=== PATIENT | male | born 1950 | race Caucasian/White ===

== ENCOUNTER → 2017-04-07 | Outpatient (CLI) | payer MEDICARE ==
[2017-04-07 16:19] LABS: CH 31.1; CHCM 32.4; HCT 46.5 % (39.0-53.0); HDW 2.34; HGB 14.7 gm/dL (13.0-17.5); MCH 30.5 pg (25.0-35.0); MCHC 31.6 g/dL (31.0-37.0); MCV 96.3 fL (80.0-100.0); Mean Platelet Volume 7.3; RBC 4.83 m/uL (4.30-5.90); RDW 13.9 % (11.5-15.5); WBC 6.5 k/uL (3.8-10.6)
[2017-04-07 16:43] LABS: Anion Gap 6 mmol/L; Blood Urea Nitrogen 28 mg/dL (9-20); Carbon Dioxide 29 mmol/L (22-30); Chloride 107 mmol/L (98-107); Non-African American GFR(MDRD) 59 (>60 ml/min/1.73 sqM); Potassium 5.1 mmol/L (3.5-5.1); Sodium 142 mmol/L (137-145)
== END | disposition home or self-care (01) ==
LOC: LABWHC1 15:44
PROVIDERS: ATTEND Internal Medicine Cardiovascular Disease
DX: I48.1 Persistent atrial fibrillation (principal)
CPT/HCPCS: 36415; 80051; 82565; 84443; 84520; 85027

== ENCOUNTER 2017-06-26 06:04 | Day surgery (SDC) | payer MEDICARE, OTHER ==
[2017-06-24 10:20] VITALS: BMI 32.1
[2017-06-26] MEDS ORDERED: LACTATED RINGERS 1,000 ML IV SCH (06:38)
[2017-06-26 06:44] VITALS: TEMP 98
[2017-06-26] MEDS ORDERED: SODIUM CHLORIDE 0.9% 50 ML IV ONE (06:50)
[2017-06-26] MEDS ORDERED: SODIUM CHLORIDE 0.9% 1,000 ML IV SCH ×2 (07:00→08:00)
[2017-06-26 07:13] LABS: Anion Gap 11 mmol/L; Blood Urea Nitrogen 20 mg/dL (9-20); Calcium 9.7 mg/dL (8.4-10.2); Carbon Dioxide 25 mmol/L (22-30); Chloride 106 mmol/L (98-107); Glucose 119 mg/dL (74-99); Sodium 142 mmol/L (137-145)
[2017-06-26 07:20] LABS: Potassium 4.5 mmol/L (3.5-5.1)
[2017-06-26] MEDS ORDERED: GLYCOPYRROLATE 0.2 MG/ML 2 ML VIAL ONE (07:28)
[2017-06-26] MEDS ORDERED: fentaNYL (PF) 50 MCG/ML 2 ML AMP ONE (07:28)
[2017-06-26] MEDS ORDERED: PROPOFOL 10 MG/ML 20 ML VIAL IV ONE (07:28)
[2017-06-26] MEDS ORDERED: MIDAZOLAM 2 MG/2 ML VIAL ONE (07:28)
--- NOTE | 2017-06-26 08:34 | ECHOT ---
TRANSESOPHAGEAL ECHOCARDIOGRAM INDICATION: Chronic atrial fibrillation. After obtaining informed consent, transesophageal echocardiogram was performed in left lateral position using an Omni plane probe. Local and IV sedation were obtained by the software engineering manager. The patient tolerated the procedure well without any obvious immediate complications. FINDINGS: 1. There is no intracardiac thrombus within the left atrial appendage, left atrium, right atrium, right ventricle or left ventricle. 2. Left ventricle has normal size and systolic function. 3. Left atrium and right atrium are enlarged. 4. Right ventricle has normal size and function. 5. Interatrial septum: There is no evidence of nktd-pk-cctry shunt by color-flow Doppler or zbbrs-hi-aqhl shunt by agitated saline contrast study. 6. Mitral valve shows mild mitral regurgitation. 7. Tricuspid valve shows mild tricuspid regurgitation. 8. Aortic valve is 3-leaflet valve. There is no evidence of aortic stenosis or regurgitation. 9. Aorta shows mild atherosclerotic changes. CONCLUSIONS: 1. No intracardiac thrombus. 2. Mild mitral regurgitation. MMODL / IJN: [id number] /
--- NOTE | 2017-06-26 08:43 | CE ---
CARDIAC ELECTROPHYSIOLOGY REPORT CARDIOVERSION NOTE: After obtaining informed consent, the patient underwent transesophageal echo and intracardiac thrombus was ruled out. The patient was anesthetized by the general ii farmworker. The patient was adequately anticoagulated with Eliquis. He is also on flecainide. We shocked him once with 500 joules of synchronized DC current and he converted to sinus rhythm and stayed in sinus rhythm. MMLETY / JESSAN: [id number] /
[2017-06-26 08:52] VITALS: RESP 18
[2017-06-26 09:52] VITALS: BP 139/86; PULSE 53
== END 2017-06-26 09:53 | disposition home or self-care (01) ==
LOC: CATHCVL 06:04
PROVIDERS: ATTEND Internal Medicine Cardiovascular Disease
DX: I48.2 Chronic atrial fibrillation (principal); I08.1 Rheumatic disorders of both mitral and tricuspid valves; I47.1 Supraventricular tachycardia; E78.5 Hyperlipidemia, unspecified; I10 Essential (primary) hypertension; R00.1 Bradycardia, unspecified; K29.50 Unspecified chronic gastritis without bleeding; Z79.01 Long term (current) use of anticoagulants; Z79.899 Other long term (current) drug therapy
CPT/HCPCS: 93312; 93320; 93325; 92960; 80048; J2250; J3010; J2704; 93005

== ENCOUNTER 2017-07-17 07:56 | Day surgery (SDC) | payer MEDICARE, OTHER ==
[2017-07-15 15:27] VITALS: BMI 29.8
[~2017-07-17 07:56] MED LIST: SODIUM CHLORIDE 0.9% 1,000 ML IV SCH
[2017-07-17] MEDS ORDERED: LACTATED RINGERS 1,000 ML IV SCH (08:15)
[2017-07-17] MEDS ORDERED: IV FLUID CONTINUATION 1,000 ML IV ONE (08:53)
[2017-07-17] MEDS ORDERED: PROPOFOL 10 MG/ML 20 ML VIAL IV ONE (09:00)
[2017-07-17] MEDS: BENZOCAINE SPRAY 1 CAN MUCOUS MEM ONE ×2 (09:00→09:02)
[2017-07-17] MEDS ORDERED: SODIUM CHLORIDE 0.9% 1,000 ML IV SCH (09:15)
[2017-07-17 09:24] VITALS: TEMP 97.7
[2017-07-17] MEDS ORDERED: LACTATED RINGERS 1,000 ML IV ONE (09:33)
--- NOTE | 2017-07-17 09:39 | ECHOT ---
TRANSESOPHAGEAL ECHOCARDIOGRAM INDICATION: Chronic atrial fibrillation. PROCEDURE: After obtaining informed consent, transesophageal echocardiogram was performed in left lateral position using an Omniplane probe. Local and IV sedation were obtained by the yard general car supervisor. The patient tolerated the procedure well without any obvious immediate complications. FINDINGS: 1. There is no intracardiac thrombus within the left atrial appendage, left atrium, right atrium, right ventricular or left ventricle. 2. Left ventricular size and systolic function are normal. 3. Mitral valve shows mild mitral regurgitation. 4. Aortic valve shows trace aortic regurgitation. 5. Tricuspid valve appears normal. 6. Interatrial septum: There is no evidence of fdwp-ks-clgnj shunt by color-flow Doppler or hluac-hz-jskl shunt by agitated saline contrast study. 7. Aorta shows mild atherosclerotic changes. CONCLUSIONS: 1. No evidence of intracardiac thrombus. 2. Normal left ventricular systolic function. PLAN: Patient will undergo cardioversion. MMODL / IJN: [id number] /
--- NOTE | 2017-07-17 09:42 | CE ---
CARDIAC ELECTROPHYSIOLOGY REPORT CARDIOVERSION INDICATION: Chronic atrial fibrillation. The patient was cardioverted using 300 joules of DC current. He converted to sinus rhythm following a single synchronized shock. An EKG will be obtained to document the sinus rhythm. The patient will continue the anticoagulant that he is on and will also continue the flecainide. ALEXIS / JASON: [id number] /
[2017-07-17 10:14] VITALS: RESP 20
[2017-07-17 11:05] VITALS: BP 116/77; PULSE 60
== END 2017-07-17 11:00 | disposition home or self-care (01) ==
LOC: CATHCVL 07:56
PROVIDERS: ATTEND Internal Medicine Cardiovascular Disease
DX: I48.2 Chronic atrial fibrillation (principal); R00.1 Bradycardia, unspecified; E78.5 Hyperlipidemia, unspecified; I10 Essential (primary) hypertension; Z79.01 Long term (current) use of anticoagulants; Z79.899 Other long term (current) drug therapy
CPT/HCPCS: 93312; 93320; 93325; 92960; J2704; 93005

== ENCOUNTER 2017-09-15 08:02 | Day surgery (SDC) | payer MEDICARE, OTHER ==
[2017-09-08 15:34] VITALS: BMI 30.2
[~2017-09-15 08:02] MED LIST changes: +DEXAMETHASONE SOD PHOSPHATE 10 MG/ML 1 ML VIAL IV ONE; +MIDAZOLAM 2 MG/2 ML VIAL IV PRN; +ONDANSETRON ODT 4 MG TAB PO ONE; -SODIUM CHLORIDE 0.9% 1,000 ML IV SCH; +ceFAZolin IN SWFI 2 GM/20 ML SYRINGE IVP ONE; +fentaNYL (PF) 50 MCG/ML 2 ML AMP IV PRN
[2017-09-15] MEDS ORDERED: LIDOCAINE 1% 20 ML VIAL (10MG/ML) FOR IV START INTRADERMA ONE (09:07)
[2017-09-15] MEDS: LACTATED RINGERS 1,000 ML IV SCH ×3 (09:07→20:47)
[2017-09-15] MEDS ORDERED: LIDOCAINE 2%-EPI 1:100,000 20 ML VIAL ONE (09:20)
[2017-09-15] MEDS ORDERED: fentaNYL (PF) 50 MCG/ML 2 ML AMP ONE (09:20)
[2017-09-15] MEDS ORDERED: MIDAZOLAM 2 MG/2 ML VIAL ONE (09:20)
[2017-09-15] MEDS ORDERED: LIDOCAINE 1% INJ 10MG/ML (20 ML MDV) ONE (09:20)
[2017-09-15] MEDS ORDERED: ePHEDrine SULFATE/0.9% NACL/PF 50 MG/5 ML SYRINGE IV ONE (09:20)
[2017-09-15] MEDS ORDERED: ROPIVACAINE 5 MG/ML 30 ML VIAL ONE (09:20)
[2017-09-15] MEDS ORDERED: PROPOFOL 10 MG/ML 20 ML VIAL IV ONE (09:20)
[2017-09-15] MEDS ORDERED: PHENYLEPHRINE-0.9% NACL SYG 1 MG/10 ML SYRINGE ONE (09:20)
[2017-09-15] MEDS ORDERED: SUCCINYLCHOLINE CHLORIDE 100 MG/5 ML SYR IV ONE (09:20)
[2017-09-15] MEDS ORDERED: ceFAZolin 1,000 MG in SODIUM CHLORIDE 0.9% 1,000 ML IRRIGATION ONE (10:04)
[2017-09-15] MEDS ORDERED: HYDROcodone/APAP 5-325MG 1 EACH TAB PO PRN (11:16)
[2017-09-15] MEDS ORDERED: TEMAZEPAM 15 MG CAP PO PRN (11:16)
[2017-09-15] MEDS ORDERED: MORPHINE SULFATE 4 MG/ML SYRINGE IVP PRN ×3 (11:16)
[2017-09-15] MEDS ORDERED: SENNOSIDES-DOCUSATE SODIUM 1 EACH TAB PO PRN (11:16)
[2017-09-15] MEDS ORDERED: hydrOXYzine PAMOATE 25 MG CAP PO PRN (11:16)
[2017-09-15] MEDS ORDERED: ONDANSETRON 4 MG/2 ML VIAL IVP PRN (11:16)
[2017-09-15] MEDS ORDERED: ONDANSETRON 4 MG/2 ML VIAL IVP ONE (11:31)
--- NOTE | 2017-09-15 15:45 | P.ONQ ---
Anesthesiology Proc Note - PNB - Peripheral Nerve Block Performed Right Interscalene Single Time Out Performed: Yes (0923) Procedure Start Time: Procedure Stop Time: Indication: Acute Post-Operative Pain, Dx/Pain Location (Right Shoulder Pain), Requested by physician Sedation Type: Sedate with meaningful contact maintained Preparation: Sterile Prep Position: Supine Needle Types: On-Q Needle Size: 50mm (2") Needle Gauge: 21 Technique: Ultrasound Injectate: 0.5% Ropivacaine (see comment for volume) (20ml) Blood Aspirated: No Pain Paresthesia on Injection Noted: No Resistance on Injection: Normal Events: Uneventful and Well Tolerated
[2017-09-15] MEDS: ceFAZolin IN SWFI 2 GM/20 ML SYRINGE IVP SCH ×2 (16:38→23:05)
[2017-09-15] MEDS: PANTOPRAZOLE 40 MG TABLET PO SCH (20:16)
[2017-09-15] MEDS: FLECAINIDE 50 MG TAB PO SCH (20:16)
[2017-09-15] MEDS ORDERED: PRAVASTATIN SODIUM 40 MG TAB PO SCH (21:00)
--- NOTE | 2017-09-15 22:57 | CONS ---
CONSULTATION DATE OF CONSULTATION: 09/15/2017 REASON FOR CONSULTATION: Medical management requested by Dr. Anderson. CONSULTATION: This is a very pleasant 67-year-old patient of Dr. Gamboa who has undergone a right rotator cuff surgery. Right arm in a sling and support right now. Pain is controlled. No nausea, vomiting, did support some dinner. The patient's chronic stable medical conditions include GERD, hyperlipidemia, osteoarthritis especially in the hands, chronic gastritis for which he has had a EGD by Dr. Lenny Collado, varicose veins, especially in the right lower extremity, rosacea. The patient also has known atrial fibrillation, was DC cardioverted in July by Dr. Collado for which patient is on Eliquis. The patient did stop his Eliquis 2 days prior to surgery. Denies any other cardiac history. The patient is with his . REVIEW OF SYSTEMS: CONSTITUTIONAL: None. HEENT: None. RESPIRATORY: None. CARDIOVASCULAR: As above. GASTROINTESTINAL: Some heartburn. GENITOURINARY: None. MUSCULOSKELETAL: Arthritic pain, especially in the fingers, especially in the left hand. DERMATOLOGICAL: As above. LYMPHATICS: None. PSYCHIATRY: None. NEUROLOGICAL: None. PAST MEDICAL HISTORY: Atrial fibrillation, GERD, hyperlipidemia, osteoarthritis, chronic gastritis, varicose veins, rosacea. PAST SURGICAL HISTORY: Cardiac catheterization, SELINA with cardioversion. SOCIAL HISTORY: The patient smoked less than a pack a day for close to 50 years, stopped in 1999. . Alcohol occasionally. FAMILY HISTORY: Lung cancer. HOME MEDICATIONS: 1. Pravachol 40 mg q.h.s. 2. Tambocor 100 mg q.12. 3. Protonix 40 mg b.i.d. 4. Tenormin 25 mg p.o. daily. 5. Eliquis 5 mg p.o. b.i.d. 6. Senokot-S 2 tablets p.o. daily. 7. [place] 5, 1-2 tablets q.4 p.r.n. ALLERGIES: To LATEX, ADHESIVE TAPE. PHYSICAL EXAMINATION: Temperature 98.8, pulse 65, respirations 15, blood pressure 137/75, pulse ox 92% on room air. GENERAL APPEARANCE: Well-built, BMI 30.2. Propped up in bed, comfortable. EYES: Pupils equal. Conjunctivae normal. HEENT: External appearance of nose and ears normal. Oral cavity normal. NECK: JVD not raised. Mass not palpable. RESPIRATORY: Effort normal. LUNGS: Fair air entry. CARDIOVASCULAR: First and second sounds normal. No edema. ABDOMEN: Soft, nontender. Liver, spleen not palpable. LYMPHATIC: No lymph node palpable in the left axilla or the neck. PSYCHIATRY: Alert and oriented x3. Mood and affect normal. EXTREMITIES: The patient has varicose veins, especially in the right calf. Right upper extremity arm in a sling. The patient has sensation in the fingers. NEUROLOGICAL: Pupils equal. Cranial nerve grossly intact. Power and sensation grossly intact. INVESTIGATIONS: No lab work from admission. ASSESSMENT: 1. Right shoulder surgery. 2. Paroxysmal atrial fibrillation, status post cardioversion, currently in sinus rhythm on Eliquis. 3. Gastroesophageal reflux disease. 4. Hyperlipidemia. 5. Primary osteoarthritis, especially of the hands. 6. Chronic gastritis. 7. Varicose veins lower extremity. 8. Rosacea. PLAN: The patient may start his Eliquis tomorrow evening. Other home medications to be resumed. Patient should follow up with his family doctor upon discharge. Care was discussed with the patient. Thank you, Dr. Anderson. MMSHERITAL / JESSAN: [id number] /
[2017-09-16 01:32] VITALS: RESP 12
[2017-09-16] MEDS: LACTATED RINGERS 1,000 ML IV SCH (05:15)
[2017-09-16] MEDS: HYDROcodone/APAP 5-325MG 1 EACH TAB PO PRN ×2 (05:54→09:46)
[2017-09-16] MEDS: FLECAINIDE 50 MG TAB PO SCH (07:10)
[2017-09-16] MEDS: PANTOPRAZOLE 40 MG TABLET PO SCH (07:10)
[2017-09-16 07:17] VITALS: BP 153/79; PULSE 56; TEMP 98.5
--- NOTE | 2017-09-16 08:54 | P.DS ---
Providers Expected date of discharge: 09/16/17 Attending physician: Kobi Anderson Consults: 09/15/17 11:21 Consult Physician Routine Consulting Provider: Colby Ortega Consult Reason/Comments: medical management Do you want consulting provider notified?: Yes 09/15/17 11:28 Consult Physician Routine Consulting Provider: Dejon Bhakta Consult Reason/Comments: medical managment Do you want consulting provider notified?: Yes Primary care physician: Sterling Gamboa - Discharge Diagnosis(es) (1) Rotator cuff tear, right Status: Acute (2) Status post rotator cuff repair Status: Acute Hospital Course: This is a 67-year-old male with known history of 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 The patient presented to the orthopedic office for evaluation. After discussion and consideration patient elects to proceed with a rotator cuff repair. The patient is seen preoperatively by his primary care physician and cleared for surgery. Patient is admitted to observation at [facility] on 09/15/2017 for right shoulder rotator cuff repair with distal clavicle excision and acromioplasty. The procedures performed without complication or sequelae. The patient is doing well postoperatively. Labs and vital signs are stable on day of discharge. On day of discharge patient's shoulder incision is healing well. There is minimal erythema. There is no drainage noted at this time. There is minimal soft tissue swelling to the right upper extremity. Patient has full hand, wrist , and elbow motion without difficulty or pain. Neurovascular status to the right upper extremity is intact. Patient is discharged to home in good condition. Patient Condition at Discharge: Stable Plan - Discharge Summary Discharge Rx Participant: Yes New Discharge Prescriptions: New HYDROcodone/APAP 5-325MG [[place] 5] 1 - 2 each PO Q4-6H PRN #60 tab PRN Reason: Pain Sennosides-Docusate Sodium [Senokot-S] 2 tab PO DAILY #30 tablet No Action Pantoprazole Sodium [Protonix] 40 mg PO BID Flecainide [Tambocor] 100 mg PO Q12HR Apixaban [Eliquis] 5 mg PO BID Atenolol [Tenormin] 25 mg PO QAM Acetaminophen [Tylenol] 325 mg PO DAILY PRN PRN Reason: Pain Pravastatin Sodium [Pravachol] 40 mg PO HS Discharge Medication List Pantoprazole Sodium [Protonix] 40 mg PO BID 10/31/14 [History] Apixaban [Eliquis] 5 mg PO BID 06/24/17 [History] Flecainide [Tambocor] 100 mg PO Q12HR 06/24/17 [History] Acetaminophen [Tylenol] 325 mg PO DAILY PRN 07/15/17 [History] Atenolol [Tenormin] 25 mg PO QAM 07/15/17 [History] Pravastatin Sodium [Pravachol] 40 mg PO HS 09/08/17 [History] HYDROcodone/APAP 5-325MG [[place] 5] 1 - 2 each PO Q4-6H PRN #60 tab 09/15/17 [Rx] Sennosides-Docusate Sodium [Senokot-S] 2 tab PO DAILY #30 tablet 09/15/17 [Rx] Follow up Appointment(s)/Referral(s): Kobi Anderson DO [Doctor of Osteopathic Medicine] - 10/01/17 9:45 am Iva Rodriguez NPC [REFERRING] - 09/22/17 2:30 pm Patient Instructions/Handouts: Joint Replacement Surgery (DC) Activity/Diet/Wound Care/Special Instructions: Keep incision clean and dry Change dressing daily May shower in 3 days if no drainage from incision Keep arm sling/abductor pillow in place except when bathing Follow up with Dr. Anderson in 2 weeks. Call [facility] with any questions or concerns. [phone] Discharge Disposition: HOME SELF-CARE
[2017-09-16] MEDS ORDERED: ATENOLOL 25 MG TAB PO SCH (09:00)
[2017-09-16] MEDS ORDERED: HYDROmorphone 2 MG TAB PO PRN ×2 (12:02)
--- NOTE | 2017-09-16 23:40 | PN ---
PROGRESS NOTE DATE OF SERVICE: 09/16/2017 PRESENTING COMPLAINT: Right shoulder surgery. INTERVAL HISTORY: Patient is status post right shoulder surgery, doing well. Pain is controlled. No nausea, vomiting. is present. Has been out of bed. REVIEW OF SYSTEMS: Done for constitutional, cardiovascular, GI, pulmonary, musculoskeletal; relevant findings as above. CURRENT MEDICATIONS: Reviewed. EXAMINATION: Temperature 98.5, pulse 56, respirations 16, blood pressure 153/79, pulse ox 94% on room air. GENERAL APPEARANCE: Sitting up, comfortable. EYES: Pupils equal. Conjunctivae normal. NECK: JVD not raised. Mass not palpable. RESPIRATORY: Effort normal. Lungs are fair air entry. CARDIOVASCULAR: First and second sounds normal. No edema. ABDOMEN: Soft, nontender. Liver and spleen not palpable. PSYCHIATRY: Alert and oriented x3. Mood and affect normal. EXTREMITIES: Right arm is in a sling. Fingers have very good sensation, moving them well. ASSESSMENT: 1. Right shoulder surgery. 2. Paroxysmal atrial fibrillation, status post cardioversion in sinus rhythm on Eliquis. 3. Gastroesophageal reflux disease. 4. Hyperlipidemia. 5. Primary osteoarthritis, especially of the hands. 6. Chronic gastritis. 7. Varicose veins, lower extremity. 8. Rosacea. PLAN: Care was discussed with the patient and the . The patient to resume his Eliquis. Follow with the family doctor. Thank you, Dr. Anderson. ALEXIS / JASON: [id number] /
--- NOTE | 2017-09-18 12:41 | OP ---
OPERATIVE REPORT DATE OF SERVICE: 09/15/2017 SURGEON: Kobi Anderson DO FARM EQUIPMENT ASSEMBLER: Alina Garcia NP PREOPERATIVE DIAGNOSIS: Complete tear of the right rotator cuff. FINAL DIAGNOSIS: Complete tear of right rotator cuff right shoulder. PROCEDURE: Resection of distal right clavicle, decompression acromioplasty, and right rotator cuff repair utilizing Arthrex bioabsorbable anchor. DESCRIPTION OF PROCEDURE: The patient was taken to the operative suite and placed in supine position. Regional block anesthesia was performed by the department of anesthesiology. General inhalation anesthesia was initiated. The patient was placed in a beach chair position, padded and appropriately secured. Betadine prep was carried out over the right shoulder. Sterile drapes were applied in the usual manner. An anterolateral incision was developed over the acromion. Sharp dissection through the subcutaneous tissue. The superior acromioclavicular ligament was identified and dissected. The distal 1 cm of the clavicle was excised with a bone saw. Anterior deltoid was released along with the anterior lateral border of the acromion. The coracoacromial ligament was released. Anterior lateral decompression acromioplasty was performed. Acromion was shaped with a saw and bone rasp. Complete tear was noted of the right rotator cuff. The area was prepared and Arthrex 5.5 bioabsorbable suture into the humeral head and reapproximation of the tear was performed. The area was irrigated copiously. The deltoid was approximated back into the acromion with #1 Ethibond suture. The deep fascia was approximated with #1 Vicryl suture. The subcutaneous tissue approximated with 2-0 Vicryl suture. The skin was approximated with 3-0 Quill suture in subcuticular fashion. The incision was sealed with Dermabond. Sterile dressing was applied. The patient was placed in an abductor pillow split and transferred to recovery room in satisfactory postop condition. 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 MMODL / IJN: [id number] / MTDGildardo
== END 2017-09-16 11:35 | disposition home or self-care (01) ==
LOC: OR 08:02 → 3SUR 11:08 → OR 09-16 11:35
PROVIDERS: ATTEND Orthopaedic Surgery
DX: M75.121 Complete rotator cuff tear or rupture of right shoulder, not specified as traumatic (principal); M75.41 Impingement syndrome of right shoulder; I10 Essential (primary) hypertension; E78.5 Hyperlipidemia, unspecified; I25.10 Atherosclerotic heart disease of native coronary artery without angina pectoris; I48.0 Paroxysmal atrial fibrillation; I47.1 Supraventricular tachycardia; K21.9 Gastro-esophageal reflux disease without esophagitis; M19.042 Primary osteoarthritis, left hand; M19.041 Primary osteoarthritis, right hand; K29.50 Unspecified chronic gastritis without bleeding; I83.91 Asymptomatic varicose veins of right lower extremity; L71.9 Rosacea, unspecified; Z79.01 Long term (current) use of anticoagulants; Z79.899 Other long term (current) drug therapy; Z87.891 Personal history of nicotine dependence; Z91.040 Latex allergy status; Z91.048 Other nonmedicinal substance allergy status
CPT/HCPCS: 64415; 23120; 23420; C1713; J2250; J1100; J2405; J0690 ×2; J2001; J3010; J2795; J2370; J0330; J2704

== ENCOUNTER 2018-12-23 11:51 | Inpatient (IN) | payer MEDICARE, OTHER ==
[2018-12-23] MEDS ORDERED: SODIUM CHLORIDE 0.9% 1,000 ML IV STA (12:11)
[2018-12-23] MEDS ORDERED: DILTIAZEM DRIP BOLUS FROM BAG 1 MG SOLN IV ONE ×2 (12:11→13:46)
--- NOTE | 2018-12-23 12:43 | ED ---
Arrhythmia/Palpitations HPI - General Chief Complaint: Arrhythmia/Palpitations Stated Complaint: AFIB Time Seen by Provider: 12/23/18 11:58 Source: patient, RN notes reviewed, old records reviewed Mode of arrival: wheelchair Limitations: no limitations - History of Present Illness Initial Comments: This is a 5-year-old male the ER for evaluation presents today for evaluation regarding elevated heart rate palpitations feeling lightheaded dizzy and sweaty. Patient's history of atrial fibrillation but he has not had history of atrial fibrillation for over a year, he did have cardioversion was on blood pressure 6 months not currently on blood thinners or sick./. Patient woke this morning with lightheadedness dizziness and shortness of breath. [facility] for [facility], patient states he feels just like her prior history of H of fibrillation, denies chest pain, no recent fevers nausea vomiting medications or drug abuse MD Complaint: rapid heart beat, "heart racing", palpitations, irregular heart beat, atrial fibrillation -: hour(s) Context: occurred during rest, awoke with symptoms Arrhythmia History: atrial fibrillation Associated Symptoms: shortness of breath, diaphoresis - Related Data Home Medications Medication Instructions Recorded Confirmed Pantoprazole Sodium [Protonix] 40 mg PO BID 10/31/14 12/23/18 Flecainide [Tambocor] 100 mg PO Q12HR 06/24/17 12/23/18 Pravastatin Sodium [Pravachol] 40 mg PO HS 09/08/17 12/23/18 Aspirin EC [Ecotrin] 325 mg PO DAILY 12/23/18 12/23/18 Fish Oil/Dha/Epa [Fish Oil 1,200 1 cap PO DAILY 12/23/18 12/23/18 mg Fish Oil] Multivitamins, Thera [Multivitamin 1 tab PO DAILY 12/23/18 12/23/18 (formulary)] Naproxen Sodium [Aleve] 220 mg PO Q12HR PRN 12/23/18 12/23/18 Allergies Allergy/AdvReac Type Severity Reaction Status Date / Time adhesive tape Allergy red skin Verified 12/23/18 12:14 latex Allergy Rash/Hives Verified 12/23/18 12:14 Review of Systems ROS Statement: Those systems with pertinent positive or pertinent negative responses have been documented in the HPI. ROS Other: All systems not noted in ROS Statement are negative. Past Medical History Past Medical History: Atrial Fibrillation, GERD/Reflux, Hyperlipidemia, Osteoarthritis (OA), Skin Disorder Additional Past Medical History / Comment(s): CHRONIC GASTRITIS, varicose veins, roseacea, History of Any Multi-Drug Resistant Organisms: None Reported Past Surgical History: Heart Catheterization Additional Past Surgical History / Comment(s): daniel rectal cyst, SELINA, cardioversion x 2, colonoscopy, EGD Past Anesthesia/Blood Transfusion Reactions: No Reported Reaction Past Psychological History: No Psychological Hx Reported Smoking Status: Former smoker Past Alcohol Use History: Occasional Past Drug Use History: None Reported - Past Family History Mother Family Medical History: Cancer Additional Family Medical History / Comment(s): LUNG Sister(s) Family Medical History: Cancer Additional Family Medical History / Comment(s): SKIN Brother(s) Family Medical History: Cancer Additional Family Medical History / Comment(s): Colon General Exam Limitations: no limitations General appearance: alert, in no apparent distress, anxious Head exam: Present: atraumatic, normocephalic, normal inspection Eye exam: Present: normal appearance, PERRL, EOMI. Absent: scleral icterus, conjunctival injection, periorbital swelling ENT exam: Present: normal exam, mucous membranes moist Neck exam: Present: normal inspection. Absent: tenderness, meningismus, lymphadenopathy Respiratory exam: Present: normal lung sounds bilaterally. Absent: respiratory distress, wheezes, rales, rhonchi, stridor Cardiovascular Exam: Present: tachycardia, irregular rhythm, normal heart sounds. Absent: systolic murmur, diastolic murmur, rubs, gallop, clicks GI/Abdominal exam: Present: soft, normal bowel sounds. Absent: distended, tenderness, guarding, rebound, rigid Extremities exam: Present: normal inspection, full ROM, normal capillary refill. Absent: tenderness, pedal edema, joint swelling, calf tenderness Back exam: Present: normal inspection Neurological exam: Present: alert, oriented X3, CN II-XII intact Psychiatric exam: Present: normal affect, normal mood Skin exam: Present: warm, dry, intact, normal color. Absent: rash Course Vital Signs 12/23/18 12/23/18 12/23/18 11:54 12:55 13:30 Temperature 97.4 F L Pulse Rate 154 H 140 H 131 H Respiratory 20 18 18 Rate Blood Pressure 133/91 123/93 126/90 O2 Sat by Pulse 99 96 98 Oximetry - Reevaluation(s) Reevaluation #1: 12/23/18 12:43 Medical records reviewed Reevaluation #2: 12/23/18 13:48 Heart rate remains elevated here in the ER EKG Findings - EKG Comments: EKG Findings:: EKG shows atrial flutter rate of 156, QRS 02, QTc 5:15 Medical Decision Making - Medical Decision Making 68 male the ER for recurrent onset of H of fibrillation with RVR, patient be admitted for rate control, patient will be started on back on Alquist for anticoagulation - Lab Data Result diagrams: 12/23/18 12:30 12/23/18 12:30 Lab Results 12/23/18 12/23/18 12/23/18 Range/Units 12:30 12:30 12:30 WBC 9.7 (3.8-10.6) k/uL RBC 5.92 H (4.30-5.90) m/uL Hgb 17.7 H (13.0-17.5) gm/dL Hct 53.5 H (39.0-53.0) % MCV 90.3 (80.0-100.0) fL MCH 29.8 (25.0-35.0) pg MCHC 33.0 (31.0-37.0) g/dL RDW 13.4 (11.5-15.5) % Plt Count 426 (150-450) k/uL Neutrophils % 69 % Lymphocytes % 18 % Monocytes % 7 % Eosinophils % 2 % Basophils % 1 % Neutrophils # 6.8 (1.3-7.7) k/uL Lymphocytes # 1.8 (1.0-4.8) k/uL Monocytes # 0.7 (0-1.0) k/uL Eosinophils # 0.2 (0-0.7) k/uL Basophils # 0.1 (0-0.2) k/uL PT (9.0-12.0) sec INR (<1.2) APTT (22.0-30.0) sec Sodium 140 (137-145) mmol/L Potassium 4.8 (3.5-5.1) mmol/L Chloride 105 (98-107) mmol/L Carbon Dioxide 24 (22-30) mmol/L Anion Gap 11 mmol/L BUN 22 H (9-20) mg/dL Creatinine 1.06 (0.66-1.25) mg/dL Est GFR (CKD-EPI)AfAm 82 (>60 ml/min/1.73 sqM) Est GFR (CKD-EPI)NonAf 71 (>60 ml/min/1.73 sqM) Glucose 124 H (74-99) mg/dL Calcium 9.5 (8.4-10.2) mg/dL Magnesium 2.1 (1.6-2.3) mg/dL Total Bilirubin 1.1 (0.2-1.3) mg/dL AST 37 (17-59) U/L ALT 41 (21-72) U/L Alkaline Phosphatase 115 (38-126) U/L Creatine Kinase 70 (55-170) U/L CK-MB (CK-2) 1.7 (0.0-2.4) ng/mL Troponin I 0.025 (0.000-0.034) ng/mL Total Protein 7.6 (6.3-8.2) g/dL Albumin 4.3 (3.5-5.0) g/dL TSH 1.680 (0.465-4.680) mIU/L 12/23/18 Range/Units 12:30 WBC (3.8-10.6) k/uL RBC (4.30-5.90) m/uL Hgb (13.0-17.5) gm/dL Hct (39.0-53.0) % MCV (80.0-100.0) fL MCH (25.0-35.0) pg MCHC (31.0-37.0) g/dL RDW (11.5-15.5) % Plt Count (150-450) k/uL Neutrophils % % Lymphocytes % % Monocytes % % Eosinophils % % Basophils % % Neutrophils # (1.3-7.7) k/uL Lymphocytes # (1.0-4.8) k/uL Monocytes # (0-1.0) k/uL Eosinophils # (0-0.7) k/uL Basophils # (0-0.2) k/uL PT 9.8 (9.0-12.0) sec INR 0.9 (<1.2) APTT 24.9 (22.0-30.0) sec Sodium (137-145) mmol/L Potassium (3.5-5.1) mmol/L Chloride (98-107) mmol/L Carbon Dioxide (22-30) mmol/L Anion Gap mmol/L BUN (9-20) mg/dL Creatinine (0.66-1.25) mg/dL Est GFR (CKD-EPI)AfAm (>60 ml/min/1.73 sqM) Est GFR (CKD-EPI)NonAf (>60 ml/min/1.73 sqM) Glucose (74-99) mg/dL Calcium (8.4-10.2) mg/dL Magnesium (1.6-2.3) mg/dL Total Bilirubin (0.2-1.3) mg/dL AST (17-59) U/L ALT (21-72) U/L Alkaline Phosphatase (38-126) U/L Creatine Kinase (55-170) U/L CK-MB (CK-2) (0.0-2.4) ng/mL Troponin I (0.000-0.034) ng/mL Total Protein (6.3-8.2) g/dL Albumin (3.5-5.0) g/dL TSH (0.465-4.680) mIU/L - Radiology Data Radiology results: report reviewed (Chest x-rays negative for acute disease), image reviewed Critical Care Time Critical Care Time: Yes Total Critical Care Time: 31 Disposition Clinical Impression: Atrial fibrillation, Atrial flutter, Palpitations, Atrial fibrillation with RVR Disposition: ADMITTED IP TO THIS HOSP Condition: Good Is patient prescribed a controlled substance at d/c from ED?: No Referrals: Sterling Gamboa MD [Primary Care Provider] - 1-2 days
[2018-12-23] MEDS: DILTIAZEM 125 MG in SODIUM CHLORIDE 0.9% 100 ML IV SCH ×2 (12:53→22:57)
[2018-12-23 12:57] LABS: Basophils # (A) 0.1 k/uL (0-0.2); Basophils % (A) 1 %; Eosinophils # (A) 0.2 k/uL (0-0.7); Eosinophils % (A) 2 %; HCT 53.5 % (39.0-53.0); HGB 17.7 gm/dL (13.0-17.5); INR 0.9 (<1.2); Lymphocytes # (A) 1.8 k/uL (1.0-4.8); Lymphocytes % (A) 18 %; MCH 29.8 pg (25.0-35.0); MCV 90.3 fL (80.0-100.0); Mean Platelet Volume 6.4; Monocytes # (A) 0.7 k/uL (0-1.0); Monocytes % (A) 7 %; Neutrophils # (A) 6.8 k/uL (1.3-7.7); Neutrophils % (A) 69 %; Partial Thromboplastin Time 24.9 sec (22.0-30.0); Platelet Count 426 k/uL (150-450); Prothrombin Time 9.8 sec (9.0-12.0); RBC 5.92 m/uL (4.30-5.90); RDW 13.4 % (11.5-15.5); WBC 9.7 k/uL (3.8-10.6)
[2018-12-23 12:58] LABS: Albumin 4.3 g/dL (3.5-5.0); Calcium 9.5 mg/dL (8.4-10.2); Magnesium 2.1 mg/dL (1.6-2.3); Potassium 4.8 mmol/L (3.5-5.1); Total Bilirubin 1.1 mg/dL (0.2-1.3); Total Protein 7.6 g/dL (6.3-8.2)
--- NOTE | 2018-12-23 13:16 | XR ---
EXAMINATION TYPE: XR chest 2V DATE OF EXAM: 12/23/2018 COMPARISON: 10/31/2014 HISTORY: Dysrhythmia and chest pain TECHNIQUE: Frontal and lateral views of the chest are obtained. FINDINGS: There is an enlarged cardiac mediastinal silhouette. Strand-like left basilar atelectasis is seen. Overlying leads partially obscure the chest. Mild degenerative changes of the thoracic spine are noted. No sizable pleural effusion or pneumothorax. No focal consolidation. IMPRESSION: Enlarged cardiac mediastinal silhouette is seen on the prior. Normal left basilar subseg mental atelectasis.
[2018-12-23 13:22] LABS: Creatine Kinase MB 1.7 ng/mL (0.0-2.4); Troponin I 0.025 ng/mL (0.000-0.034)
[2018-12-23] MEDS ORDERED: ASPIRIN 81 MG PO STA (13:46)
[2018-12-23] MEDS ORDERED: NITROGLYCERIN SL TABS 0.4 MG TAB SUBLINGUAL PRN (13:46)
[2018-12-23] MEDS ORDERED: APIXABAN 5 MG TAB PO STA (13:53)
[2018-12-23] MEDS: SODIUM CHLORIDE 0.9% 1,000 ML IV SCH ×2 (14:00→22:57)
[2018-12-23 16:49] VITALS: BMI 28.6
[2018-12-23] MEDS ORDERED: NAPROXEN 250 MG TAB PO PRN (17:05)
--- NOTE | 2018-12-23 17:13 | P.HPIM ---
History of Present Illness Patient is a 68-year-old pleasant gentleman with known history of atrial flutter ablation came and compensative palpation patient was having low back. Doesn't have any symptoms or signs of sepsis denied any fever chills denied any nausea vomiting dysuria chest x-ray did not show any significant abnormality patient was started on Cardizem after adequate to IV Cardizem doses and patient is presently on 5 mg of per hour of Cardizem without any significant improvement in heart rate patient's heart rate is 130 at this time. Patient to ejection fraction the past was within normal limits. Patient is on Eliquis which was restarted back here. Patient was having lightheadedness and shadows of breath as well was also complaining of low back pain with radiculopathy tingling and numbness radiating to back of Review of Systems REVIEW OF SYSTEMS: CONSTITUTIONAL: No fever, no malaise, no fatigue. HEENT: No recent visual problems or hearing problems. Denied any sore throat. CARDIOVASCULAR: No chest pain, orthopnea, PND, no syncope. PULMONARY:, no cough, no hemoptysis. GASTROINTESTINAL: No diarrhea, no nausea, no vomiting, no abdominal pain. NEUROLOGICAL: No headaches, no weakness, no numbness. HEMATOLOGICAL: Denies any bleeding or petechiae. GENITOURINARY: Denies any burning micturition, frequency, or urgency. MUSCULOSKELETAL/RHEUMATOLOGICAL: Denies any joint pain, swelling, or any muscle pain. ENDOCRINE: Denies any polyuria or polydipsia. The rest of the 14-point review of systems is negative. Past Medical History Past Medical History: Atrial Fibrillation, GERD/Reflux, Hyperlipidemia, Osteoarthritis (OA), Skin Disorder Additional Past Medical History / Comment(s): CHRONIC GASTRITIS, varicose veins, roseacea, History of Any Multi-Drug Resistant Organisms: None Reported Past Surgical History: Heart Catheterization Additional Past Surgical History / Comment(s): daniel rectal cyst, SELINA, cardioversion x 2, colonoscopy, EGD Past Anesthesia/Blood Transfusion Reactions: No Reported Reaction Past Psychological History: No Psychological Hx Reported Smoking Status: Former smoker Past Alcohol Use History: Occasional Additional Past Alcohol Use History / Comment(s): QUIT SMOKING 1999, smoked for approx 40 yrs, < 1 PPD Past Drug Use History: None Reported - Past Family History Mother Family Medical History: Cancer Additional Family Medical History / Comment(s): LUNG Sister(s) Family Medical History: Cancer Additional Family Medical History / Comment(s): SKIN Brother(s) Family Medical History: Cancer Additional Family Medical History / Comment(s): Colon Medications and Allergies Home Medications Medication Instructions Recorded Confirmed Type Pantoprazole Sodium [Protonix] 40 mg PO BID 10/31/14 12/23/18 History Flecainide [Tambocor] 100 mg PO Q12HR 06/24/17 12/23/18 History Pravastatin Sodium [Pravachol] 40 mg PO HS 09/08/17 12/23/18 History Aspirin EC [Ecotrin] 325 mg PO DAILY 12/23/18 12/23/18 History Fish Oil/Dha/Epa [Fish Oil 1,200 1 cap PO DAILY 12/23/18 12/23/18 History mg Fish Oil] Multivitamins, Thera [Multivitamin 1 tab PO DAILY 12/23/18 12/23/18 History (formulary)] Naproxen Sodium [Aleve] 220 mg PO Q12HR PRN 12/23/18 12/23/18 History Allergies Allergy/AdvReac Type Severity Reaction Status Date / Time adhesive tape Allergy red skin Verified 12/23/18 12:14 latex Allergy Rash/Hives Verified 12/23/18 12:14 Physical Exam Vitals: Vital Signs Temp Pulse Pulse Resp BP BP Pulse Ox 12/23/18 16:00 98 F 132 H 16 105/73 95 12/23/18 15:00 135 H 18 132/87 96 12/23/18 14:00 133 H 18 121/84 96 12/23/18 13:30 131 H 18 126/90 98 12/23/18 12:55 140 H 18 123/93 96 12/23/18 11:54 97.4 F L 154 H 20 133/91 99 Intake and Output 12/23/18 12/23/18 12/23/18 06:59 14:59 22:59 Other: Weight 95.708 kg PHYSICAL EXAMINATION: GENERAL: The patient is alert and oriented x3, not in any acute distress. Well developed, well nourished. HEENT: Pupils are round and equally reacting to light. EOMI. No scleral icterus. No conjunctival pallor. Normocephalic, atraumatic. No pharyngeal erythema. No thyromegaly. CARDIOVASCULAR: S1 and S2 present. No murmurs, rubs, or gallops. Irregularly irregular rhythm, tachycardic PULMONARY: Chest is clear to auscultation, no wheezing or crackles. ABDOMEN: Soft, nontender, nondistended, normoactive bowel sounds. No palpable organomegaly. MUSCULOSKELETAL: No joint swelling or deformity. EXTREMITIES: No cyanosis, clubbing, or pedal edema. NEUROLOGICAL: Gross neurological examination did not reveal any focal deficits. SKIN: No rashes. Results CBC & Chem 7: 12/23/18 12:30 12/23/18 12:30 Labs: Abnormal Lab Results - Last 24 Hours (Table) 12/23/18 12/23/18 Range/Units 12:30 12:30 RBC 5.92 H (4.30-5.90) m/uL Hgb 17.7 H (13.0-17.5) gm/dL Hct 53.5 H (39.0-53.0) % BUN 22 H (9-20) mg/dL Glucose 124 H (74-99) mg/dL Thrombosis Risk Factor Assmnt - Choose All That Apply Each Risk Factor Represents 2 Points: Age 61-74 years Thrombosis Risk Factor Assessment Total Risk Factor Score: 2 Thrombosis Risk Factor Assessment Level: Low Risk Assessment and Plan Plan: -Atrial fibrillation with rapid ventricular rate: Patient was started on Cardizem patient was started back on Flecanaide, cardiology was consulted patient will be resumed and continued on Eliquis. -Chronic low back pain pain may be a prostrating factor for atrial fibrillation continue with naproxen and GI prophylaxis -Hyperlipidemia -Gases visual reflux disease -Obesity
[2018-12-23] MEDS: FLECAINIDE 50 MG TAB PO SCH (20:30)
[2018-12-23] MEDS: APIXABAN 5 MG TAB PO SCH (20:30)
[2018-12-23] MEDS ORDERED: PRAVASTATIN SODIUM 40 MG TAB PO SCH (21:00)
[2018-12-23 21:17] VITALS: RESP 18
[2018-12-24 03:54] LABS: Cholesterol 200 mg/dL (<200); HDL Cholesterol 43 mg/dL (40-60); LDL Cholesterol,Calculated 139 mg/dL (0-99); Triglycerides 88 mg/dL (<150)
[2018-12-24] MEDS ORDERED: PANTOPRAZOLE 40 MG TABLET PO SCH (07:30)
[2018-12-24] MEDS ORDERED: METOPROLOL TARTRATE 25 MG TAB PO SCH (09:00)
[2018-12-24] MEDS ORDERED: ASPIRIN 325 MG TAB PO SCH (09:00)
[2018-12-24] MEDS: FLECAINIDE 50 MG TAB PO SCH (09:06)
[2018-12-24] MEDS: APIXABAN 5 MG TAB PO SCH (09:06)
[2018-12-24] MEDS: SODIUM CHLORIDE 0.9% 1,000 ML IV SCH (09:06)
--- NOTE | 2018-12-24 10:05 | P.CRDCN ---
History of Present Illness Consult date: 12/24/18 Chief complaint: Heart racing History of present illness: This is a pleasant 68-year-old gentleman who sees Dr. Collado in the office as an outpatient with a past medical history significant for paroxysmal atrial fibrillation presented to the hospital complaining of feeling palpitation in the chest. For the last 24 hours, he has not been feeling well. He was experiencing symptoms of palpitations associated with heart racing and he noticed that his heart was regular. No dizziness or lightheadedness, and no syncope. No chest pain or chest discomfort. The patient atrial fibrillation is normal asymptomatic and he can tell once he is in atrial fibrillation. He was seen yesterday in the office by Dr. Collado where he was found to be in atrial fibrillation with RVR and he was started on oral anticoagulation and was sent to the emergency room. In the ER he was also in A. fib with RVR and he was started on Cardizem drip and was admitted for further evaluation. Currently the patient is in atrial fibrillation with a heart rate around 120 beats per minutes. I did review the EKG which seems to be consistent with atrial flutter. He is on Cardizem at 10 mg per hour. The patient was not receiving any oral anticoagulation nor oral AV irvin stu agents as an outpatient. I am going to start the patient on metoprolol at 25 mg by mouth twice a day. The right wean him from the Cardizem drip. I did discuss the case with Dr. Collado, his senior procurement manager, who would like the patient to undergo a cardioversion as an outpatient if the heart rate gets control over the weekend or on Thursday if he continues to be in fast heart rate. Meanwhile I will continue oral anticoagulation. We'll obtain an echocardiogram was Doppler. We'll continue following up with the patient. I would advise the patient to undergo sleep study as an outpatient. Beside that I discussed with the patient the possible need for atrial flutter ablation. The patient would like to try the cardioversion now. Past Medical History Past Medical History: Atrial Fibrillation, GERD/Reflux, Hyperlipidemia, Osteoarthritis (OA), Skin Disorder Additional Past Medical History / Comment(s): CHRONIC GASTRITIS, varicose veins, roseacea, History of Any Multi-Drug Resistant Organisms: None Reported Past Surgical History: Heart Catheterization Additional Past Surgical History / Comment(s): daniel rectal cyst, SEILNA, cardioversion x 2, colonoscopy, EGD Past Anesthesia/Blood Transfusion Reactions: No Reported Reaction Past Psychological History: No Psychological Hx Reported Smoking Status: Former smoker Past Alcohol Use History: Occasional Additional Past Alcohol Use History / Comment(s): QUIT SMOKING 1999, smoked for approx 40 yrs, < 1 PPD Past Drug Use History: None Reported - Past Family History Mother Family Medical History: Cancer Additional Family Medical History / Comment(s): LUNG Sister(s) Family Medical History: Cancer Additional Family Medical History / Comment(s): SKIN Brother(s) Family Medical History: Cancer Additional Family Medical History / Comment(s): Colon Medications and Allergies Home Medications Medication Instructions Recorded Confirmed Type Pantoprazole Sodium [Protonix] 40 mg PO BID 10/31/14 12/23/18 History Flecainide [Tambocor] 100 mg PO Q12HR 06/24/17 12/23/18 History Pravastatin Sodium [Pravachol] 40 mg PO HS 09/08/17 12/23/18 History Aspirin EC [Ecotrin] 325 mg PO DAILY 12/23/18 12/23/18 History Fish Oil/Dha/Epa [Fish Oil 1,200 1 cap PO DAILY 12/23/18 12/23/18 History mg Fish Oil] Multivitamins, Thera [Multivitamin 1 tab PO DAILY 12/23/18 12/23/18 History (formulary)] Naproxen Sodium [Aleve] 220 mg PO Q12HR PRN 12/23/18 12/23/18 History Allergies Allergy/AdvReac Type Severity Reaction Status Date / Time adhesive tape Allergy red skin Verified 12/23/18 12:14 latex Allergy Rash/Hives Verified 12/23/18 12:14 Physical Exam Vitals: Vital Signs Temp Pulse Pulse Resp BP BP Pulse Ox 12/24/18 04:00 97.6 F 102 H 18 137/81 95 12/24/18 00:00 98.0 F 87 18 123/72 94 L 12/23/18 20:00 97.9 F 102 H 18 121/78 95 12/23/18 16:00 98 F 132 H 16 105/73 95 12/23/18 15:00 135 H 18 132/87 96 12/23/18 14:00 133 H 18 121/84 96 12/23/18 13:30 131 H 18 126/90 98 12/23/18 12:55 140 H 18 123/93 96 12/23/18 11:54 97.4 F L 154 H 20 133/91 99 Intake and Output 12/23/18 12/24/18 12/24/18 22:59 06:59 14:59 Intake Total 1294.333 360 Balance 1294.333 360 Intake: Intake, IV Titration 850.333 Amount Diltiazem 125 mg In 50.333 Sodium Chloride 0.9% 100 ml @ 10 MG/HR 10 mls/hr IV .[id number] [facility] Rx#: [id number] Sodium Chloride 0.9% 1, 800 000 ml @ 100 mls/hr IV . Q10H [facility]HA[facility] Rx#:[id number] Oral 444 360 Other: Voiding Method Toilet Toilet # Voids 2 Weight 97.6 kg - Constitutional General appearance: no acute distress - Respiratory Respiratory: bilateral: CTA - Cardiovascular Rhythm: irregularly irregular Heart sounds: normal: S1, S2 Results 12/23/18 12:30 12/23/18 12:30 Cardiac Enzymes 12/23/18 12/23/18 12/23/18 Range/Units 12:30 12:30 19:14 AST 37 (17-59) U/L CK-MB (CK-2) 1.7 (0.0-2.4) ng/mL Troponin I 0.025 0.034 (0.000-0.034) ng/mL 12/24/18 Range/Units 00:16 AST (17-59) U/L CK-MB (CK-2) (0.0-2.4) ng/mL Troponin I 0.047 H* (0.000-0.034) ng/mL Coagulation 12/23/18 Range/Units 12:30 PT 9.8 (9.0-12.0) sec APTT 24.9 (22.0-30.0) sec Lipids 12/23/18 Range/Units 12:30 Triglycerides 88 (<150) mg/dL Cholesterol 200 H (<200) mg/dL HDL Cholesterol 43 (40-60) mg/dL CBC 12/23/18 Range/Units 12:30 WBC 9.7 (3.8-10.6) k/uL RBC 5.92 H (4.30-5.90) m/uL Hgb 17.7 H (13.0-17.5) gm/dL Hct 53.5 H (39.0-53.0) % Plt Count 426 (150-450) k/uL Comprehensive Metabolic Panel 12/23/18 Range/Units 12:30 Sodium 140 (137-145) mmol/L Potassium 4.8 (3.5-5.1) mmol/L Chloride 105 (98-107) mmol/L Carbon Dioxide 24 (22-30) mmol/L BUN 22 H (9-20) mg/dL Creatinine 1.06 (0.66-1.25) mg/dL Glucose 124 H (74-99) mg/dL Calcium 9.5 (8.4-10.2) mg/dL AST 37 (17-59) U/L ALT 41 (21-72) U/L Alkaline Phosphatase 115 (38-126) U/L Total Protein 7.6 (6.3-8.2) g/dL Albumin 4.3 (3.5-5.0) g/dL Current Medications Generic Name Dose Route Start Last Admin Trade Name Freq PRN Reason Stop Dose Admin Apixaban 5 mg 12/23/18 21:00 12/24/18 09:06 Eliquis PO 12/29/18 13:52 5 mg BID NATHANAEL Administration Flecainide Acetate 100 mg 12/23/18 21:00 12/24/18 09:06 Tambocor PO 100 mg Q12HR NATHANAEL Administration Diltiazem HCl 125 mg/ Sodium 125 mls @ 10 mls/hr 12/23/18 12:15 12/23/18 22:57 Chloride IV 5 mg/hr .[id number] NATHANAEL 5 mls/hr Administration 10 MG/HR Sodium Chloride 1,000 mls @ 100 mls/hr 12/23/18 14:00 12/24/18 09:06 Saline 0.9% IV 100 mls/hr .Q10H NATHANAEL Administration Metoprolol Tartrate 25 mg 12/24/18 09:00 12/24/18 09:06 Lopressor PO 25 mg BID NATHANAEL Administration Naproxen 250 mg 12/23/18 17:05 12/23/18 21:00 Naprosyn PO 250 mg Q12HR PRN Administration Pain Nitroglycerin 0.4 mg 12/23/18 13:46 Nitrostat SUBLINGUAL Q5M PRN Chest Pain Pantoprazole Sodium 40 mg 12/24/18 07:30 12/24/18 06:59 Protonix PO 40 mg [id number] NATHANAEL Administration Pravastatin Sodium 40 mg 12/23/18 21:00 12/23/18 20:29 Pravachol PO 40 mg HS NATHANAEL Administration Intake and Output 12/23/18 12/24/18 12/24/18 22:59 06:59 14:59 Intake Total 1294.333 360 Balance 1294.333 360 Intake: Intake, IV Titration 850.333 Amount Diltiazem 125 mg In 50.333 Sodium Chloride 0.9% 100 ml @ 10 MG/HR 10 mls/hr IV .[id number] [facility] Rx#: [id number] Sodium Chloride 0.9% 1, 800 000 ml @ 100 mls/hr IV . Q10H [facility] Rx#:[id number] Oral 444 360 Other: Voiding Method Toilet Toilet # Voids 2 Weight 97.6 kg 12/23/18 12:30 12/23/18 12:30 Assessment and Plan Assessment: Assessment #1 atrial fibrillation/flutter with RVR #2 paroxysmal atrial fibrillation Plan #1 right wean the patient from Cardizem drip #2 start the patient on oral metoprolol #3 continue oral anticoagulation #4 possibly sleep study as an outpatient #5 follow-up with the patient Thank you for allowing us participate in his care
--- NOTE | 2018-12-24 12:32 | ECHOF ---
Referral Reason:a.fib MEASUREMENTS -------- HEIGHT: 182.9 cm WEIGHT: 97.5 kg BP: 137/81 RVIDd: 2.9 cm (< 3.3) IVSd: 1.5 cm (0.6 - 1.1) LVIDd: 3.8 cm (3.9 - 5.3) LVPWd: 1.5 cm (0.6 - 1.1) IVSs: 2.2 cm LVIDs: 3.0 cm LVPWs: 1.5 cm LA Diam: 3.5 cm (2.7 - 3.8) LAESV Index (A-L): 28.98 ml/m Ao Diam: 3.6 cm (2.0 - 3.7) AV Cusp: 1.5 cm (1.5 - 2.6) LA Diam: 3.4 cm (2.7 - 3.8) MV EXCURSION: 17.354 mm (> 18.000) MV EF SLOPE: 75 mm/s (70 - 150) EPSS: 0.2 cm MV E [place]: 0.69 m/s MV DecT: 169 ms MV A [place]: 0.03 m/s MV E/A Ratio: 22.49 AR PHT: 475 ms RAP: 5.00 mmHg RVSP: 18.11 mmHg FINDINGS -------- Atrial fibrillation. This was a technically adequate study. The left ventricular size is normal. There is moderate concentric left ventricular hypertrophy. O verall left ventricular systolic function is normal with, an EF between 55 - 60 %. Left ventricular fillimg pressure cannot be estimated due to Atrial fibrillation. The right ventricle is normal in size. The left atrial size is normal. Normal LA size by volume 22+/-6 ml/m2. The right atrial size is normal. There is mild aortic valve sclerosis. There is mild aortic regurgitation. Mild mitral annular calcification present. Mild mitral regurgitation is present. Mild tricuspid regurgitation present. Right ventricular systolic pressure is normal at < 35 mmHg. There is no evidence of pulmonary hypertension. There is no pulmonic regurgitation present. The aortic root size is normal. There is no pericardial effusion. CONCLUSIONS -------- 1. Atrial fibrillation. 2. This was a technically adequate study. 3. The left ventricular size is normal. 4. There is moderate concentric left ventricular hypertrophy. 5. Overall left ventricular systolic function is normal with, an EF between 55 - 60 %. 6. Left ventricular fillimg pressure cannot be estimated due to Atrial fibrillation. 7. The right ventricle is normal in size. 8. The left atrial size is normal. 9. Normal LA size by volume 22+/-6 ml/m2. 10. The right atrial size is normal. 11. There is mild aortic valve sclerosis. 12. There is mild aortic regurgitation. 13. Mild mitral annular calcification present. 14. Mild mitral regurgitation is present. 15. Mild tricuspid regurgitation present. 16. Right ventricular systolic pressure is normal at < 35 mmHg. 17. There is no evidence of pulmonary hypertension. 18. There is no pulmonic regurgitation present. 19. The aortic root size is normal. 20. There is no pericardial effusion. HOURLY ASSOCIATE: Tova Chung RDCS
[2018-12-24 12:57] VITALS: BP 116/75; PULSE 69; TEMP 98
--- NOTE | 2018-12-24 14:29 | P.PN ---
Subjective Patient was admitted for A. fib with rapid ventricular rate. Patient to heart rate is still not well-controlled patient is being started on beta stu and we'll trying to wean off on Cardizem. Patient on Eliquis which will be continued. lateral last troponin is 0.047 and this is secondary to increased heart rate. Constitutional: Denied any fatigue denied any fever. Cardio vascular: denied any chest pain, palpitations Gastrointestinal denied any nausea vomiting Pulmonary: Denied any shortness of breath cough Neurologic denied any new focal deficits All inpatient medications were reviewed and appropriate changes in these medications as dictated in the interval history and assessment and plan. Objective - Vital Signs Vital signs: Vital Signs Temp 98.0 F 12/24/18 11:40 Pulse 69 12/24/18 11:40 Resp 18 12/24/18 11:40 BP 116/75 12/24/18 11:40 Pulse Ox 97 12/24/18 11:40 Intake & Output 12/23/18 12/24/18 12/24/18 18:59 06:59 18:59 Intake Total 1294.333 720 Balance 1294.333 720 Weight 95.708 kg 97.6 kg Intake: Intake, IV Titration 850.333 Amount Diltiazem 125 mg In 50.333 Sodium Chloride 0.9% 100 ml @ 10 MG/HR 10 mls/hr IV .[id number] [facility] Rx#: [id number] Sodium Chloride 0.9% 1, 800 000 ml @ 100 mls/hr IV . Q10H [facility] Rx#:[id number] Oral 444 720 Other: Voiding Method Toilet # Voids 2 1 - Exam PHYSICAL EXAMINATION: GENERAL: The patient is alert and oriented x3, not in any acute distress. Well developed, well nourished. HEENT: Pupils are round and equally reacting to light. EOMI. No scleral icterus. No conjunctival pallor. Normocephalic, atraumatic. No pharyngeal erythema. No thyromegaly. CARDIOVASCULAR: S1 and S2 present. No murmurs, rubs, or gallops. Irregularly irregular rhythm, tachycardic PULMONARY: Chest is clear to auscultation, no wheezing or crackles. ABDOMEN: Soft, nontender, nondistended, normoactive bowel sounds. No palpable organomegaly. MUSCULOSKELETAL: No joint swelling or deformity. EXTREMITIES: No cyanosis, clubbing, or pedal edema. NEUROLOGICAL: Gross neurological examination did not reveal any focal deficits. SKIN: No rashes. - Labs CBC & Chem 7: 12/23/18 12:30 12/23/18 12:30 Labs: Abnormal Lab Results - Last 24 Hours (Table) 12/23/18 12/24/18 Range/Units 12:30 00:16 Troponin I 0.047 H* (0.000-0.034) ng/mL Cholesterol 200 H (<200) mg/dL LDL Cholesterol, Calc 139 H (0-99) mg/dL Assessment and Plan Plan: -Atrial fibrillation with rapid ventricular rate: is on Flecanaide, and metoprolol and continue with Eliquis. -Chronic low back pain pain may be a prostrating factor for atrial fibrillation continue with naproxen and GI prophylaxis -Hyperlipidemia -Gastroesophageal reflux disease -Obesity
--- NOTE | 2018-12-24 14:56 | P.DS ---
Providers Date of admission: 12/24/18 07:24 Attending physician: Griffin Carbone Consults: 12/23/18 13:46 Consult Physician Urgent Consulting Provider: Clarke Cox Consult Reason/Comments: afib Do you want consulting provider notified?: Yes Primary care physician: Sterling Gamboa [facility] Course: Patient is presently rate controlled soon A. fib patient was started on Eliquis. Patient will be discharged today discussed with cardiology. Patient wanted to go home. Patient will follow in 2 weeks. Please refer to my dictation of progress note from today for further details. Patient Condition at Discharge: Good Plan - Discharge Summary New Discharge Prescriptions: New Apixaban [Eliquis] 5 mg PO BID #60 tab Metoprolol Tartrate [Lopressor] 25 mg PO BID #60 tab Continue Pantoprazole Sodium [Protonix] 40 mg PO BID Flecainide [Tambocor] 100 mg PO Q12HR Pravastatin Sodium [Pravachol] 40 mg PO HS Naproxen Sodium [Aleve] 220 mg PO Q12HR PRN PRN Reason: Pain Multivitamins, Thera [Multivitamin (formulary)] 1 tab PO DAILY Aspirin EC [Ecotrin] 325 mg PO DAILY Fish Oil/Dha/Epa [Fish Oil 1,200 mg Fish Oil] 1 cap PO DAILY Discharge Medication List Pantoprazole Sodium [Protonix] 40 mg PO BID 10/31/14 [History] Flecainide [Tambocor] 100 mg PO Q12HR 06/24/17 [History] Pravastatin Sodium [Pravachol] 40 mg PO HS 09/08/17 [History] Aspirin EC [Ecotrin] 325 mg PO DAILY 12/23/18 [History] Fish Oil/Dha/Epa [Fish Oil 1,200 mg Fish Oil] 1 cap PO DAILY 12/23/18 [History] Multivitamins, Thera [Multivitamin (formulary)] 1 tab PO DAILY 12/23/18 [History] Naproxen Sodium [Aleve] 220 mg PO Q12HR PRN 12/23/18 [History] Apixaban [Eliquis] 5 mg PO BID #60 tab 12/24/18 [Rx] Metoprolol Tartrate [Lopressor] 25 mg PO BID #60 tab 12/24/18 [Rx] Follow up Appointment(s)/Referral(s): Sterling Gamboa MD [Primary Care Provider] - 3 Days Cholo Collado MD [STAFF PHYSICIAN] - 2 Weeks Discharge Disposition: HOME SELF-CARE
--- NOTE | 2018-12-28 07:43 | CDI ---
Documentation Clarification Form Date: 12/28/2018 From: Chiqui Redd Phone: If questions call Zo Lin @ [phone], Hours-8:30 am & 5 pm M- Adrianne Admit Date: 12/24/2018 7:24:00 AM Patient Name: Barry Dupree Visit Number: [id number] Discharge Date: 12/24/2018 4:57:00 PM ATTENTION: The Clinical Documentation Specialists (CDI) and [facility] Coding Staff appreciate your assistance in clarifying documentation. Please respond to the clarification below the line at the bottom and electronically sign. The CDI & [facility] Coding staff will review the response and follow-up if needed. Please note: Queries are made part of the Legal Health Record. If you have any questions, please contact the author of this message via ITS. Dr. Frantz Crowder Atrial Flutter is documented in the ED Note, H&P and your consult. History/Risk factors: paroxysmal atrial fibrillation, s/p cardioversion x2 Clinical Indicators: palpitations, SOB, lightheaded, dizzy and sweaty EKG/telemetry: atrial flutter rate of 156, QRS 02, QTc 5:15 Treatment: Cardizem drip, Metoprolol 25 mg po bid, Eliquis 5mg bid In your professional opinion, in order to capture the severity of condition; can you please clarify the type of Atrial Flutter if known? Typical/Type I Atypical/Type II Other, please specify Unable to determine Typical/Type 1 MTDD
== END 2018-12-24 16:57 | disposition home or self-care (01) | DRG 310 ==
LOC: EC 11:51 → 3SCARD 14:08 → OBSVTOIN 12-24 07:24
PROVIDERS: ADMIT Hospitalist; ATTEND Hospitalist
DX: I48.0 Paroxysmal atrial fibrillation (principal); I48.3 Typical atrial flutter; K21.9 Gastro-esophageal reflux disease without esophagitis; E78.5 Hyperlipidemia, unspecified; G89.29 Other chronic pain; M54.5 Low back pain; M54.10 Radiculopathy, site unspecified; M19.90 Unspecified osteoarthritis, unspecified site; E66.9 Obesity, unspecified; Z68.29 Body mass index [BMI] 29.0-29.9, adult; I83.90 Asymptomatic varicose veins of unspecified lower extremity; Z79.899 Other long term (current) drug therapy; Z79.82 Long term (current) use of aspirin; Z87.891 Personal history of nicotine dependence; Z87.19 Personal history of other diseases of the digestive system; Z87.2 Personal history of diseases of the skin and subcutaneous tissue; Z98.890 Other specified postprocedural states; Z91.040 Latex allergy status; Z91.048 Other nonmedicinal substance allergy status; Z80.1 Family history of malignant neoplasm of trachea, bronchus and lung; Z80.8 Family history of malignant neoplasm of other organs or systems; Z80.0 Family history of malignant neoplasm of digestive organs
CPT/HCPCS: 36415; 71046; 80053; 80061; 82550; 82553; 83735; 84443; 84484; 85025; 85610; 85730; 93005; 93306; 96365; 96366; 96376; 99291

== ENCOUNTER → 2022-02-27 | Outpatient (CLI) | payer MEDICARE, OTHER ==
--- NOTE | 2022-02-27 09:59 | FL ---
EXAMINATION TYPE: FL barium swallow DATE OF EXAM: 02/27/2022 CLINICAL HISTORY: Hoarseness. Dysphagia per order. Oropharyngeal inflammation on evaluation by ENT. O n long-term acid reflux medication for GERD. TECHNIQUE: A double contrast esophagram is performed utilizing air and barium. A total of 22 second s of fluoroscopic time was utilized during procedure and 43 images obtained COMPARISON: None FINDINGS: The esophagus shows satisfactory motility and emptying into the stomach during upright drin jerry. Some delay in emptying noted on prone drinking. There is tiny anterior diverticulum at level of the lower cervical spine just left of midline. No evidence of fixed hiatal hernia or stricture noted . No significant gastroesophageal reflux was seen during real time performance of this study. IMPRESSION: Tiny proximal anterior esophageal diverticulum. No fixed hiatal hernia.
== END | disposition home or self-care (01) ==
LOC: RADUSWWP 07:54
PROVIDERS: ATTEND Otolaryngology
DX: K22.5 Diverticulum of esophagus, acquired (principal)
CPT/HCPCS: 74220

== ENCOUNTER 2022-10-14 06:04 | Day surgery (SDC) | payer MEDICARE, OTHER ==
[2022-10-09 17:35] VITALS: BMI 28.3
[2022-10-14] MEDS ORDERED: LACTATED RINGERS 1,000 ML IV ONE (07:04)
[2022-10-14 07:07] VITALS: RESP 16; TEMP 97
[2022-10-14 07:12] LABS: African American GFR (CKD) >90 (>60 ml/min/1.73 sqM); Anion Gap 7 mmol/L; Blood Urea Nitrogen 21 mg/dL (9-20); Calcium 8.6 mg/dL (8.4-10.2); Carbon Dioxide 27 mmol/L (22-30); Chloride 105 mmol/L (98-107); Glucose 107 mg/dL (74-99); Non-African American GFR(CKD) 85 (>60 ml/min/1.73 sqM); Potassium 4.3 mmol/L (3.5-5.1); Sodium 139 mmol/L (137-145)
[2022-10-14] MEDS ORDERED: LIDOCAINE 2% INJ 20 MG/ML (2 ML VIAL) ONE (07:29)
[2022-10-14] MEDS ORDERED: ATROPINE SULFATE 0.1 MG/ML 10ML SYRINGE ONE (07:29)
[2022-10-14] MEDS ORDERED: PROPOFOL 10 MG/ML 20 ML VIAL IV ONE (07:29)
--- NOTE | 2022-10-14 09:10 | PCN ---
PROCEDURE NOTE This is a cardioversion note. INDICATIONS: Barry is a 72-year-old gentleman with symptomatic persistent atrial fibrillation who was advised to undergo cardioversion as he recently presented back to us with symptomatic atrial fibrillation and poorly controlled ventricular rate. The patient is on Toprol-XL 50 mg daily and flecainide 150 mg b.i.d. along with Eliquis 5 mg b.i.d. The patient understands risks, benefits, and alternatives. PROCEDURE NOTE: After obtaining informed consent, cardioversion was performed with 150 joules of synchronized DC current. The patient developed bradycardia immediately after cardioversion. He converted to sinus rhythm following a single shock, but his heart rates were in the 30s and received 1 mg of atropine following which heart rate increased up to 47 beats per minute. He remained stable hemodynamically with blood pressure around 100 mm systolic. Patient is anticoagulated with Eliquis. I am going to stop the Toprol and discharge. Continue the flecainide at 100 mg b.i.d. He will be seen back in my office in a week's time. MMSHERITAL / IJN: [id number] /
[2022-10-14 10:26] VITALS: BP 125/78; PULSE 64
== END 2022-10-14 10:22 | disposition home or self-care (01) ==
LOC: OR 06:04
PROVIDERS: ATTEND Internal Medicine Cardiovascular Disease
DX: I48.19 Other persistent atrial fibrillation (principal); I10 Essential (primary) hypertension; E78.5 Hyperlipidemia, unspecified; M19.90 Unspecified osteoarthritis, unspecified site; K21.9 Gastro-esophageal reflux disease without esophagitis; Z79.01 Long term (current) use of anticoagulants; Z79.899 Other long term (current) drug therapy
CPT/HCPCS: 92960; 80048; J0461; J2704; J2001

== ENCOUNTER 2022-12-17 09:02 | Day surgery (SDC) | payer MEDICARE, OTHER ==
[2022-12-11 09:03] VITALS: BMI 30.4
[~2022-12-17 09:02] MED LIST changes: -DEXAMETHASONE SOD PHOSPHATE 10 MG/ML 1 ML VIAL IV ONE; +LACTATED RINGERS 1,000 ML IV SCH; +LIDOCAINE 1% (10MG/ML) FOR IV START INTRADERMA PRN; -MIDAZOLAM 2 MG/2 ML VIAL IV PRN; -ONDANSETRON ODT 4 MG TAB PO ONE; -ceFAZolin IN SWFI 2 GM/20 ML SYRINGE IVP ONE; -fentaNYL (PF) 50 MCG/ML 2 ML AMP IV PRN
[2022-12-17 10:06] VITALS: TEMP 97.3
[2022-12-17] MEDS ORDERED: METOPROLOL TARTRATE 5 MG/5 ML VIAL IVP SCH (10:30)
[2022-12-17] MEDS ORDERED: PROPOFOL 10 MG/ML 20 ML VIAL IV ONE (10:46)
[2022-12-17] MEDS ORDERED: METOPROLOL TARTRATE 5 MG/5 ML VIAL IVP ONE ×2 (10:46→11:15)
--- NOTE | 2022-12-17 11:01 | P.PCN ---
Date of Procedure: 12/17/22 Procedure(s) Performed: BRIEF HISTORY: Patient is a 72-year-old pleasant white male scheduled for an elective colonoscopy as a part of screening for colon cancer/positive cologuard PROCEDURE PERFORMED: Colonoscopy with biopsy and snare polypectomy. PREOPERATIVE DIAGNOSIS: Screening for colon cancer/positive cologuard. IV sedation per Anesthesia. PROCEDURE: After informed consent was obtained, the patient, was brought into the endoscopy unit. IV sedation was administered by Anesthesia under continuous monitoring. Digital rectal examination was normal. Initially the Olympus CF-160 flexible video colonoscope was then inserted in the rectum, gradually advanced into the cecum without any difficulty. Careful examination was performed as the scope was gradually being withdrawn. Ileocecal valve and the appendiceal orifice were visualized and appeared normal. Prep was excellent. Mucosa of the cecum, normal. In the ascending colon there was a 7 mm flat polyp removed by snare polypectomy. Rest of the ascending colon, transverse colon, descending colon, appeared normal. There were moderate left sided diverticulosis seen. There was mild segmental colitis involving the sigmoid colon extending from 20-30 cm from the anal verge with mild mucosal erythema suspicious for diverticular related colitis status post o biopsies. The rectum appeared normal. Retroflexion was performed in the rectum and no lesions were seen. The patient tolerated the procedure well. IMPRESSION: 7 mm flat ascending colon polyp serous posterior polypectomy Mild segmental colitis involving the sigmoid colon extending from 20-30 cm from the anal verge with mucosal erythema in the vicinity of diverticulosis lurdes picious for diverticular related mild colitis Moderate left-sided diverticulosis RECOMMENDATIONS: Findings of this examination were discussed with the patient as well as his family. He was advised to follow with the biopsy results. If the biopsy results adenoma he can have a repeat colonoscopy in 5 years.
[2022-12-17] MEDS ORDERED: IV FLUID CONTINUATION 1,000 ML IV ONE ×2 (11:40)
[2022-12-17 11:57] VITALS: BP 136/96; PULSE 128; RESP 18
--- NOTE | 2022-12-17 12:47 | P.CRDCN ---
History of Present Illness Consult date: 12/17/22 History of present illness: History of present illness: This is a 72 year old male patient of Dr. Inocente Collado with past medical history of paroxysmal atrial fibrillation, hypertension. We have been asked to evaluate the patient for A. fib with RVR. Patient was seen in the office with Dr. Inocente Collado on 12/15 with concern for poorly controlled ventricular rate and plan was for him to undergo ablation with Dr. Epstein which has been scheduled for January. Patient has completed And came in the hospital for a screening colonoscopy to be performed by Dr. Preeti Collado and he was found to be in A. fib with RVR up to 148 bpm and blood pressure 194/91. EKG revealed atrial fibri llation at 134 bpm. Patient took his Toprol-XL 75 mg at 7 AM today. Home cardiac medications: Eliquis 5 mg twice daily, lisinopril 30 mg at bedtime, Toprol-XL 75 mg daily, pravastatin 40 mg at bedtime. Review Of Systems: At the time of my evaluation: Constitutional: No fever, no chills. No weakness, fatigue or lethargy. EENT: No headache. No dizziness. Lungs: No shortness of breath, cough, no sputum production. No wheezing. Cardiovascular: No chest pain, no lower extremity edema. No palpitations. No paroxysmal nocturnal dyspnea. No orthopnea. No lightheadedness or dizziness. No syncopal episodes. Abdominal: No abdominal pain. No nausea, vomiting. No diarrhea. No constipation. No bloody or tarry stools. Genitourinary: No dysuria.. No urinary retention. Musculoskeletal: No myalgias. No muscle weakness, no frequent falls. No back pain. No neck pain. Integumentary: No wounds. No rash. No unusual bruising. Neurologic: No aphasia. No facial droop. No change in mentation. No head injury. No headache. Physical examination: Gen: This is a 72-year-old male resting on stretcher and appears to be controlled. Patient is seen in the preop area VS: reviewed HEENT: Head is atraumatic, normocephalic. Pupils equal, round. Sclerae is anicteric. LUNGS: Clear to auscultation. No wheezes or rhonchi. No intercostal retractions. HEART: Irregular rate and rhythm. No murmur. Tachycardic EXTREMITIES: No pedal edema. NEUROLOGICAL: Patient is awake, alert and oriented x3. Assessment: Paroxysmal atrial fibrillation with poorly controlled ventricular rate Hypertension Screening colonoscopy Plan: Lopressor 5 mg to be given prior to procedure another 5 mg Be repeated during the procedure and following the procedure. At the time of discharge, patient will be resumed back on his home cardiac medications. Thank you kindly for this consultation. Nurse practitioner note has been reviewed, I agree with documented findings and plan of care. Patient was seen and examined. Past Medical History Past Medical History: Atrial Fibrillation, GERD/Reflux, Hyperlipidemia, Hypertension, Osteoarthritis (OA), Skin Disorder Additional Past Medical History / Comment(s): hx gastritis., varicose veins., roseacea , environmental allergies, diverticulitis History of Any Multi-Drug Resistant Organisms: None Reported Past Surgical History: Heart Catheterization, Orthopedic Surgery Additional Past Surgical History / Comment(s): daniel rectal cyst, SELINA, cardioversion colonoscopy, EGD, varicose vein stripping, right shoulder torn tendon.,left shoulder cyst removal and repair. Past Anesthesia/Blood Transfusion Reactions: No Reported Reaction Past Psychological History: No Psychological Hx Reported Smoking Status: Former smoker Past Alcohol Use History: Occasional Additional Past Alcohol Use History / Comment(s): QUIT SMOKING 1999, smoked for approx 40 yrs, < 1 PPD Past Drug Use History: None Reported - Past Family History Mother Family Medical History: Cancer Additional Family Medical History / Comment(s): LUNG Sister(s) Family Medical History: Cancer Additional Family Medical History / Comment(s): SKIN Brother(s) Family Medical History: Cancer Additional Family Medical History / Comment(s): Colon Medications and Allergies Home Medications Medication Instructions Recorded Confirmed Type Pantoprazole Sodium [Protonix] 40 mg PO BID 10/31/14 12/11/22 History Pravastatin Sodium [Pravachol] 40 mg PO HS 09/08/17 12/11/22 History Apixaban [Eliquis] 5 mg PO BID #60 tab 12/24/18 12/11/22 Rx lisinopriL 30 mg PO HS 07/07/22 12/11/22 History Acetaminophen [Tylenol Extra 1,000 mg PO DIRECTED PRN 12/11/22 12/11/22 History Strength] Famotidine [Pepcid] 10 mg PO HS PRN 12/11/22 12/11/22 History Loratadine [Claritin] 10 mg PO DAILY PRN 12/11/22 12/11/22 History Metoprolol Succinate (ER) [Toprol 75 mg PO DAILY 12/11/22 12/17/22 History Xl] Psyllium Husk (with Sugar) 1 dose PO DIRECTED 12/11/22 12/11/22 History [Metamucil Powder] Super Beta Prostate 1 dose PO DAILY 12/11/22 History Allergies Allergy/AdvReac Type Severity Reaction Status Date / Time adhesive tape Allergy red skin Verified 12/17/22 09:42 latex Allergy Rash/Hives Verified 12/17/22 09:42 sulfamethoxazole Allergy Rash/Hives Verified 12/17/22 09:42 [From Bactrim] trimethoprim [From Bactrim] Allergy Rash/Hives Verified 12/17/22 09:42 Physical Exam Vitals: Vital Signs Temp Pulse Resp BP Pulse Ox 12/17/22 10:03 97.3 F L 148 H 16 191/91 97 Intake and Output 12/16/22 12/17/22 12/17/22 22:59 06:59 14:59 Other: Weight 91.9 kg Results Current Medications Generic Name Dose Route Start Last Admin Trade Name Freq PRN Reason Stop Dose Admin Lactated Ringer's 1,000 mls @ 20 mls/hr 12/17/22 07:18 12/17/22 10:01 Lactated Ringers IV 01/16/23 07:19 0 mls .Q24H NATHANAEL Administration Lidocaine HCl 0.1 ml 12/17/22 07:18 Lidocaine 1% (10mg/Ml) For Iv Start INTRADERMA 01/16/23 07:19 PER PROTOCOL PRN IV Start Intake and Output 12/16/22 12/17/22 12/17/22 22:59 06:59 14:59 Other: Weight 91.9 kg Patient Weight 12/18/22 06:59 Weight 91.9 kg
== END 2022-12-17 12:19 | disposition home or self-care (01) ==
LOC: ORWHC2ENDO 09:02
PROVIDERS: ATTEND Internal Medicine Gastroenterology
DX: D12.2 Benign neoplasm of ascending colon (principal); K57.30 Diverticulosis of large intestine without perforation or abscess without bleeding; K52.9 Noninfective gastroenteritis and colitis, unspecified; I10 Essential (primary) hypertension; K21.9 Gastro-esophageal reflux disease without esophagitis; I48.0 Paroxysmal atrial fibrillation; E78.5 Hyperlipidemia, unspecified; M19.90 Unspecified osteoarthritis, unspecified site; F17.200 Nicotine dependence, unspecified, uncomplicated; Z79.01 Long term (current) use of anticoagulants; Z79.899 Other long term (current) drug therapy
CPT/HCPCS: 88305; 45380; 45385; J2704

== ENCOUNTER → 2023-01-05 | Outpatient (CLI) | payer MEDICARE, OTHER ==
[2023-01-05 15:44] LABS: HCT 45.4 % (39.6-50.0); HGB 14.7 d/dL (13.0-17.0); MCH 30.7 pg (27.0-32.0); MCHC 32.4 d/dL (32.0-37.0); MCV 94.8 FL (80.0-97.0); Mean Platelet Volume 9.6 FL (9.5-12.2); NRBC Per 100 WBC 0 X 10*3/uL (0.00-0.01); Platelet Count 303 X 10*3/uL (140-440); RBC 4.79 X 10*6/uL (4.40-5.60)
[2023-01-05 15:48] LABS: Blood Urea Nitrogen 16.3 mg/dL (9.0-27.0)
[2023-01-05 15:49] LABS: Carbon Dioxide 25.7 mmol/L (21.6-31.8); Chloride 106 mmol/L (96-109); Sodium 139 mmol/L (135-145)
== END | disposition home or self-care (01) ==
LOC: LABPAT 10:51
PROVIDERS: ATTEND Internal Medicine Clinical Cardiac Electrophysiology
DX: Z01.812 Encounter for preprocedural laboratory examination (principal); I48.19 Other persistent atrial fibrillation
CPT/HCPCS: 80051; 82565; 84520; 85027

== ENCOUNTER 2023-02-10 10:35 | Day surgery (SDC) | payer MEDICARE, OTHER ==
[2023-02-10 11:32] VITALS: TEMP 97.3
[2023-02-10] MEDS ORDERED: LACTATED RINGERS 1,000 ML IV ONE ×2 (11:33→12:39)
[2023-02-10] MEDS ORDERED: PROPOFOL 10 MG/ML 20 ML VIAL IV ONE (12:07)
[2023-02-10] MEDS ORDERED: LIDOCAINE 2% INJ 20 MG/ML (2 ML VIAL) ONE (12:07)
--- NOTE | 2023-02-10 12:56 | ECHOT ---
TRANSESOPHAGEAL ECHOCARDIOGRAM INDICATIONS FOR PROCEDURE: Persistent atrial fibrillation in a patient with known atrial fibrillation and status post recent ablation. PROCEDURES PERFORMED: 1. Transesophageal echocardiogram. 2. Cardioversion. SELINA INDICATION: To rule out intracardiac thrombus prior to cardioversion. PROCEDURE NOTE: After obtaining informed consent, transesophageal echocardiogram was performed in left lateral position using an Omniplane probe. Local and IV sedation were obtained by the drilling and production superintendent. The patient tolerated the procedure well without any obvious immediate complications. FINDINGS: 1. There is no intracardiac thrombus within the left atrial appendage, left atrium, right atrium, right ventricle, or left ventricle. 2. Left ventricle has normal size and systolic function. 3. Left atrium appears mildly enlarged. 4. There is an atrial septal defect with [id number] shunt, probably related to the recent ablation procedure. 5. There is mild mitral regurgitation noted. 6. There is mild tricuspid regurgitation. 7. Aortic valve is free of stenosis or regurgitation. CONCLUSIONS: 1. Normal LV systolic function. 2. No intracardiac thrombus. PLAN: The patient will undergo cardioversion. CARDIOVERSION NOTE: INDICATION: Persistent atrial fibrillation with poorly-controlled ventricular rate in a patient with known atrial fibrillation and recent ablation. The patient underwent cardioversion using 150 joules of synchronized DC current, converted to sinus rhythm following a single shock. He is adequately anticoagulated with Eliquis, and an intracardiac thrombus is ruled out per transesophageal echo. I will continue the patient on flecainide and Eliquis and discharge. MMODL / IJN: [id number] /
[2023-02-10 14:03] VITALS: BP 148/87; PULSE 69; RESP 17
== END 2023-02-10 14:02 | disposition home or self-care (01) ==
LOC: OR 10:35
PROVIDERS: ATTEND Internal Medicine Cardiovascular Disease
DX: I48.11 Longstanding persistent atrial fibrillation (principal); I08.1 Rheumatic disorders of both mitral and tricuspid valves; Q21.10 Atrial septal defect, unspecified; I10 Essential (primary) hypertension; K21.9 Gastro-esophageal reflux disease without esophagitis; E78.5 Hyperlipidemia, unspecified; F10.90 Alcohol use, unspecified, uncomplicated; Z79.01 Long term (current) use of anticoagulants; Z79.899 Other long term (current) drug therapy; Z87.891 Personal history of nicotine dependence
CPT/HCPCS: 93312; 93320; 93325; 92960; J2704; J2001

== ENCOUNTER 2024-05-30 08:38 | Day surgery (SDC) | payer MEDICARE, OTHER ==
[~2024-05-30 08:38] MED LIST changes: -LACTATED RINGERS 1,000 ML IV SCH; -LIDOCAINE 1% (10MG/ML) FOR IV START INTRADERMA PRN; +SODIUM CHLORIDE 0.9% 500 ML 500 ML IV SCH
[2024-05-30 09:38] VITALS: TEMP 97.4
[2024-05-30] MEDS: SODIUM CHLORIDE 0.9% 500 ML 500 ML IV ONE (09:43)
[2024-05-30] MEDS ORDERED: GLYCOPYRROLATE 0.2 MG/ML 2 ML VIAL ONE (10:00)
[2024-05-30] MEDS ORDERED: PROPOFOL 10 MG/ML 20 ML VIAL IV ONE (10:00)
[2024-05-30] MEDS ORDERED: PHENYLEPHRINE-0.9% NACL SYG 1,000 MCG/10 ML SYRINGE ONE (10:00)
[2024-05-30] MEDS ORDERED: LIDOCAINE 1% INJ 10MG/ML (20 ML MDV) ONE (10:00)
[2024-05-30] MEDS ORDERED: ePHEDrine 50 MG/ML 1 ML VIAL ONE (10:00)
[2024-05-30] MEDS ORDERED: ATROPINE SULFATE 0.1 MG/ML 10ML SYRINGE ONE (10:00)
[2024-05-30] MEDS: SODIUM CHLORIDE 0.9% 1,000 ML IV ONE (11:49)
--- NOTE | 2024-05-30 12:59 | PCN ---
PROCEDURE NOTE INDICATION: Persistent symptomatic atrial fibrillation in a patient with known atrial fibrillation, status post prior cardioversion. PROCEDURE NOTE: After obtaining informed consent, cardioversion was performed using 150 joules of synchronized direct current. The patient converted to sinus rhythm following a single shock. He is anesthetized by the green coffee blender. The patient is adequately anticoagulated with Eliquis, and I confirmed that he has been taking it regularly. The patient became bradycardic after the cardioversion that was transient asystole and bradycardia. We gave him atropine, and he was hypotensive, received fluids and pressors. Following this, his heart rate came into the 50s and 60s, and he is stable, but at the time of this dictation, still under the care of green coffee blender. Upon discharge, the patient is going to continue Eliquis. I am going to hold the Toprol and continue the flecainide. I will adjust these medications on discharge. MMODL / IJN: [id number] /
[2024-05-30 14:52] VITALS: RESP 18
[2024-05-30 16:03] VITALS: BP 110/71; PULSE 61
== END 2024-05-30 16:29 | disposition home or self-care (01) ==
LOC: OR 08:38
PROVIDERS: ATTEND Internal Medicine Cardiovascular Disease
DX: I48.0 Paroxysmal atrial fibrillation (principal); I10 Essential (primary) hypertension; E78.5 Hyperlipidemia, unspecified; Z87.891 Personal history of nicotine dependence; Z79.01 Long term (current) use of anticoagulants; Z79.899 Other long term (current) drug therapy
CPT/HCPCS: 92960; J2003; J0461; J2704; J2371; J1596

== ENCOUNTER 2024-07-25 10:36 | Inpatient (IN) | payer MEDICARE ==
[~2024-07-25 10:36] MED LIST changes: +ACETAMINOPHEN TAB 500 MG TAB PO PRN; +MAGNESIUM SULFATE-D5W PMX 1 GM in DEXTROSE/WATER 1 100ML.BAG IVPB PRN; -SODIUM CHLORIDE 0.9% 500 ML 500 ML IV SCH
[2024-07-25 12:09] LABS: Basophils % (A) 0 %; Eosinophils # (A) 0.3 k/uL (0-0.7); Eosinophils % (A) 4 %; HGB 14.7 gm/dL (13.0-17.5); Lymphocytes # (A) 1.7 k/uL (1.0-4.8); Lymphocytes % (A) 24 %; MCHC 32.1 g/dL (31.0-37.0); MCV 96.6 fL (80.0-100.0); Mean Platelet Volume 7.4; Monocytes # (A) 0.5 k/uL (0-1.0); Monocytes % (A) 7 %; Neutrophils # (A) 4.4 k/uL (1.3-7.7); Neutrophils % (A) 63 %; Platelet Count 289 k/uL (150-450); RBC 4.76 m/uL (4.30-5.90); RDW 12.9 % (11.5-15.5); WBC 7.1 k/uL (3.8-10.6)
[2024-07-25 12:21] LABS: African American GFR (CKD) >90 (>60 ml/min/1.73 sqM); Anion Gap 7 mmol/L; Blood Urea Nitrogen 17 mg/dL (9-20); Calcium 9.4 mg/dL (8.4-10.2); Carbon Dioxide 28 mmol/L (22-30); Chloride 103 mmol/L (98-107); Glucose 99 mg/dL (74-99); Non-African American GFR(CKD) 84 (>60 ml/min/1.73 sqM); Potassium 4.2 mmol/L (3.5-5.1); Sodium 138 mmol/L (137-145)
[2024-07-25 13:04] LABS: Prothrombin Time 10.8 sec (10.0-12.5)
--- NOTE | 2024-07-25 15:06 | P.HPCAR ---
History of Present Illness This is Dr. Epstein dictating an H/P on this patient The patient was interviewed and examined IMPRESSION / ASSESSMENT: Persistent atrial fibrillation, symptomatic with tiredness and fatigue and shortness of breath Failed extensive ablation with PVI linear ablation of the left atrium Chronic pericarditis Flecainide toxicity with QRS widening with exercise Stable from a cardiovascular standpoint without any chest discomfort or syncope BUN 17 creatinine 0.9, TSH normal, magnesium 2.0, normal Creatinine clearance calculated at 99 mL/min Modified for overweight patient, creatinine clearance 87 PLAN: Stop amlodipine. Flecainide is already being discontinued Increase Toprol-XL to 50 mg twice daily for rate control Valsartan 160 [address] twice daily in place of lisinopril for better blood pressure control Start dofetilide 250 mcg twice daily. Twelve-lead EKG today shows a QT interval of less than 400 ms but during A-fib with RVR Electrical cardioversion on Thursday if patient remains in A-fib Continue Eliquis HPI Patient remains short of breath with tiredness fatigue during A-fib He has failed flecainide on account of flecainide toxicity with QRS widening on exercise stress test He has already undergone A-fib ablation with PVI and linear ablation of the left atrium Thickened pericardium consistent with chronic pericarditis ROS: No fever chills or rigors, no cough, phlegm or expectoration, no nausea, vomiting or diarrhea, no hematuria, dysuria, no musculoskeletal complaints, no strokes or seizures, no skin lesions. EXAMINATION: Ventricular rate 130 beats a minute Blood pressure 122/55 mmHg Heart sounds S1-S2 irregular but normal no murmurs Lungs are clear no rhonchi no crackles Abdomen soft nontender Extremities warm no edema REVIEW OF LABS, ECG & MEDICAL DATA White count 7.1 thousand, hematocrit 46, platelet count 289,000 Sodium 138, potassium 4.2 BUN 17 and creatinine 0.9 TSH 1.3 Normal labs Physical Exam Vitals: Vital Signs Temp Pulse Resp BP Pulse Ox 07/25/24 12:00 98 F 130 H 18 122/55 96 Intake and Output 07/25/24 07/25/24 07/25/24 06:59 14:59 22:59 Other: Weight 97.9 kg Past Medical History Past Medical History: Atrial Fibrillation, Chest Pain / Angina, GERD/Reflux, Hyperlipidemia, Hypertension, Osteoarthritis (OA), Prostate Disorder, Skin Disorder, Vascular Disorder Additional Past Medical History / Comment(s): CHRONIC GASTRITIS, diverticulitis, varicose veins tx, roseacea,fatigue, spur on feet. BPH History of Any Multi-Drug Resistant Organisms: None Reported Past Surgical History: Cardiac Ablation, Heart Catheterization, Orthopedic Surgery Additional Past Surgical History / Comment(s): daniel rectal cyst, SELINA, cardioversion x 4, colonoscopy, EGD, varicose vein stripping, shoulder for torn tendon on rt, lft shoulder cyst removal and repair. Past Anesthesia/Blood Transfusion Reactions: No Reported Reaction Past Psychological History: No Psychological Hx Reported Smoking Status: Former smoker Past Alcohol Use History: Occasional Additional Past Alcohol Use History / Comment(s): QUIT SMOKING 1999, smoked for approx 40 yrs, < 1 PPD Past Drug Use History: None Reported - Past Family History Mother Family Medical History: Cancer Sister(s) Family Medical History: AFIB, Cancer Additional Family Medical History / Comment(s): SKIN cancers. 3 sisters with with heart issues one with A fib. Brother(s) Family Medical History: Cancer Additional Family Medical History / Comment(s): Colon Physical Examination Vital Signs Temp Pulse Resp BP Pulse Ox 07/25/24 12:00 98 F 130 H 18 122/55 96 Intake and Output 07/25/24 07/25/24 07/25/24 06:59 14:59 22:59 Other: Weight 97.9 kg Results 07/25/24 11:51 07/25/24 11:51 Coagulation 07/25/24 Range/Units 12:39 PT 10.8 (10.0-12.5) sec CBC 07/25/24 Range/Units 11:51 WBC 7.1 (3.8-10.6) k/uL RBC 4.76 (4.30-5.90) m/uL Hgb 14.7 (13.0-17.5) gm/dL Hct 46.0 (39.0-53.0) % Plt Count 289 (150-450) k/uL Comprehensive Metabolic Panel 07/25/24 Range/Units 11:51 Sodium 138 (137-145) mmol/L Potassium 4.2 (3.5-5.1) mmol/L Chloride 103 (98-107) mmol/L Carbon Dioxide 28 (22-30) mmol/L BUN 17 (9-20) mg/dL Creatinine 0.88 (0.66-1.25) mg/dL Glucose 99 (74-99) mg/dL Calcium 9.4 (8.4-10.2) mg/dL Current Medications Generic Name Dose Route Start Last Admin Trade Name Freq PRN Reason Stop Dose Admin Acetaminophen 500 mg 07/25/24 09:55 Acetaminophen Tab 500 Mg Tab PO Q6HR PRN Fever and/ or Pain Apixaban 5 mg 07/25/24 21:00 Apixaban 5 Mg Tab PO BID [facility] Protocol Dofetilide 250 mcg 07/25/24 18:00 Dofetilide 250 Mcg Cap PO 1800 [facility] Magnesium Sulfate/Dextrose 1 100 mls @ 100 mls/hr 07/25/24 09:56 gm/ IV Solution IVPB 08/08/24 23:00 Q1H PRN Hypomagnesemia Magnesium Oxide 400 mg 07/26/24 09:00 Magnesium Oxide 400 Mg Tab PO DAILY [facility] Metoprolol Succinate 50 mg 07/25/24 21:00 Metoprolol Succinate (Er) 50 Mg Tab.Er.24h PO BID NATHANAEL Pantoprazole Sodium 40 mg 07/25/24 17:30 Pantoprazole 40 Mg Tablet PO AC-BID [facility] Pravastatin Sodium 40 mg 07/26/24 09:00 Pravastatin Sodium 40 Mg Tab PO DAILY [facility] Psyllium Hydrophilic Mucilloid 6 gm 07/26/24 09:00 Psyllium Husk 100% 6 Gm Packet PO DAILY [facility] Spironolactone 25 mg 07/26/24 09:00 Spironolactone 25 Mg Tab PO DAILY [facility] Tamsulosin HCl 0.4 mg 07/26/24 08:30 Tamsulosin 0.4 Mg Cap.Er.24h PO PC-BRKFST [facility] Valsartan 160 mg 07/26/24 09:00 Valsartan 160 Mg Tab PO DAILY [facility] Intake and Output 07/25/24 07/25/24 07/25/24 06:59 14:59 22:59 Other: Weight 97.9 kg Patient Weight 07/26/24 06:59 Weight 97.9 kg 07/25/24 11:51 07/25/24 11:51
[2024-07-25] MEDS: DOFETILIDE 250 MCG CAP PO SCH (17:59)
[2024-07-25] MEDS: PANTOPRAZOLE 40 MG TABLET PO SCH (17:59)
[2024-07-25] MEDS: SODIUM CHLORIDE 0.9% 1,000 ML IV SCH (19:43)
[2024-07-25] MEDS: METOPROLOL SUCCINATE (ER) 50 MG TAB.ER.24H PO SCH (21:09)
[2024-07-25] MEDS: APIXABAN 5 MG TAB PO SCH (21:31)
[2024-07-25] MEDS: MAGNESIUM SULFATE-D5W PMX 1 GM in DEXTROSE/WATER 1 100ML.BAG IVPB SCH (21:31)
[2024-07-26] MEDS: DOFETILIDE 125 MCG CAP PO ONE (06:12)
[2024-07-26 08:44] LABS: African American GFR (CKD) >90 (>60 ml/min/1.73 sqM); Anion Gap 9 mmol/L; Blood Urea Nitrogen 17 mg/dL (9-20); Calcium 8.8 mg/dL (8.4-10.2); Carbon Dioxide 23 mmol/L (22-30); Chloride 103 mmol/L (98-107); Glucose 88 mg/dL (74-99); Non-African American GFR(CKD) 86 (>60 ml/min/1.73 sqM); Sodium 135 mmol/L (137-145)
[2024-07-26 08:45] LABS: Magnesium 2.2 mg/dL (1.6-2.3); Potassium 5.9 mmol/L (3.5-5.1)
[2024-07-26] MEDS: METOPROLOL SUCCINATE (ER) 50 MG TAB.ER.24H PO SCH (08:53)
[2024-07-26] MEDS: MAGNESIUM OXIDE 400 MG TAB PO SCH (08:53)
[2024-07-26] MEDS: VALSARTAN 160 MG TAB PO SCH (08:53)
[2024-07-26] MEDS: PRAVASTATIN SODIUM 40 MG TAB PO SCH (08:53)
[2024-07-26] MEDS: TAMSULOSIN 0.4 MG CAP.ER.24H PO SCH (08:53)
[2024-07-26] MEDS: PSYLLIUM HUSK 100% 6 GM PACKET PO SCH (08:53)
[2024-07-26] MEDS: SPIRONOLACTONE 25 MG TAB PO SCH (08:53)
[2024-07-26] MEDS ORDERED: MAGNESIUM OXIDE 400 MG TAB PO SCH (09:00)
[2024-07-26] MEDS ORDERED: METOPROLOL SUCCINATE (ER) 50 MG TAB.ER.24H PO SCH (09:00)
--- NOTE | 2024-07-26 11:58 | P.PN ---
Subjective HISTORY OF PRESENT ILLNESS: This is a 74-year-old patient of Dr. Epstein who was admitted to the hospital secondary to Tikosyn initiation. Patient received his first dose of Tikosyn yesterday evening and shortly afterwards converted to sinus mechanism. He is maintaining sinus mechanism with a heart rate in the 70s this morning. QTa 420. Patient without complaints of chest pain or shortness of breath. He has been up ambulating in the hallway. Vital signs are stable. Magnesium 2.2. Potassium this morning 5.9. However specimen was hemolyzed. Repeat 3.9. PHYSICAL EXAM: VITAL SIGNS: Reviewed. GENERAL: Well-developed in no acute distress. NECK: Supple. No JVD or thyromegaly LUNGS: Respirations even and unlabored. Lungs essentially clear to auscultation bilaterally. HEART: Regular rate and rhythm. S1 and S2 heard. EXTREMITIES: Normal range of motion. No clubbing or cyanosis. Peripheral pulses intact. No lower extremity edema ASSESSMENT: Persistent atrial fibrillation, status post initiation of flecainide, currently maintaining sinus mechanism Failed extensive ablation with PVI linear ablation of the left atrium Chronic pericarditis Flecainide toxicity with QRS widening with exercise PLAN: Continue anticoagulation with Eliquis Patient to receive dofetilide 250 mcg this evening Continue to monitor EKG Repeat BMP and magnesium in a.m. Cardioversion for tomorrow canceled as patient converted to sinus mechanism sp ontaneously Continue telemetry monitoring DO NOT hold Tikosyn for bradycardia Further recommendations pending patient course Nurse practitioner note has been reviewed by physician. Signing provider agrees with the documented findings, assessment, and plan of care documented by EMERY GRINDER as a scribe. Objective - Vital Signs Vital signs: Vital Signs Temp 97.9 F 07/26/24 08:05 Pulse 98 07/26/24 08:05 Resp 17 07/26/24 08:05 BP 140/79 07/26/24 08:05 Pulse Ox 98 07/26/24 08:05 FiO2 Intake & Output 07/25/24 07/26/24 07/26/24 18:59 06:59 18:59 Intake Total 240 200 Output Total 0 Balance 240 200 Weight 97.9 kg 96.3 kg Intake: IV 200 Magnesium Sulfate-D5w Pmx 200 1 gm In Dextrose/Water 1 100ml.bag @ 100 mls/hr IVPB Q1H PRN Rx#: [id number] Oral 240 Output: Gastric Drainage 0 Urine 0 Stool 0 Urine/Stool Mix 0 Emesis 0 Oral Regurgitation 0 Other 0 Other: # Voids 0 2 # Bowel Movements 0 - Labs CBC & Chem 7: 07/25/24 11:51 07/26/24 10:19 Labs: Abnormal Lab Results - Last 24 Hours (Table) 07/26/24 Range/Units 07:41 Sodium 135 L (137-145) mmol/L Potassium 5.9 H (3.5-5.1) mmol/L
[2024-07-26] MEDS: DOFETILIDE 250 MCG CAP PO SCH (17:41)
[2024-07-26] MEDS ORDERED: SODIUM CHLORIDE 0.9% NEBULIZ 3 ML INHALATION PRN (17:49)
[2024-07-26 23:46] VITALS: RESP 16
[2024-07-27] MEDS: DOFETILIDE 250 MCG CAP PO ONE ×2 (05:57→17:27)
[2024-07-27 07:02] LABS: African American GFR (CKD) >90 (>60 ml/min/1.73 sqM); Anion Gap 8 mmol/L; Blood Urea Nitrogen 17 mg/dL (9-20); Calcium 9.4 mg/dL (8.4-10.2); Carbon Dioxide 30 mmol/L (22-30); Chloride 100 mmol/L (98-107); Glucose 95 mg/dL (74-99); Magnesium 2.3 mg/dL (1.6-2.3); Non-African American GFR(CKD) 83 (>60 ml/min/1.73 sqM); Potassium 4.3 mmol/L (3.5-5.1); Sodium 138 mmol/L (137-145)
--- NOTE | 2024-07-27 13:24 | P.PN ---
Subjective HISTORY OF PRESENT ILLNESS: This is a 74-year-old patient of Dr. Epstein who was admitted to the hospital secondary to Tikosyn initiation. Patient received his first dose of Tikosyn yesterday evening and shortly afterwards converted to sinus mechanism. He is maintaining sinus mechanism with a heart rate in the 70s this morning. QTa 420. Patient without complaints of chest pain or shortness of breath. He has been up ambulating in the hallway. Vital signs are stable. Magnesium 2.2. Potassium this morning 5.9. However specimen was hemolyzed. Repeat 3.9. 07/27/2024 Patient examined this morning at the bedside. Patient currently denies chest pain or pressure. He denies shortness of breath. He is maintaining sinus mechanism. QTa this morning around 400. Potassium 4.3. Magnesium 2.3. BUN 17. Creatinine 0.89. PHYSICAL EXAM: VITAL SIGNS: Reviewed. GENERAL: Well-developed in no acute distress. NECK: Supple. No JVD or thyromegaly LUNGS: Respirations even and unlabored. Lungs essentially clear to auscultation bilaterally. HEART: Regular rate and rhythm. S1 and S2 heard. EXTREMITIES: Normal range of motion. No clubbing or cyanosis. Peripheral pulses intact. No lower extremity edema ASSESSMENT: Persistent atrial fibrillation, status post initiation of flecainide, currently maintaining sinus mechanism Failed extensive ablation with PVI linear ablation of the left atrium Chronic pericarditis Flecainide toxicity with QRS widening with exercise PLAN: Continue anticoagulation with Eliquis Patient to receive dofetilide 250 mcg this evening Continue to monitor EKG Repeat BMP and magnesium in a.m. Continue telemetry monitoring DO NOT hold Tikosyn for bradycardia Further recommendations pending patient course Nurse practitioner note has been reviewed by physician. Signing provider agrees with the documented findings, assessment, and plan of care documented by ADZING AND BORING MACHINE OPERATOR as a scribe. Objective - Vital Signs Vital signs: Vital Signs Temp 97.6 F 07/27/24 11:53 Pulse 56 L 07/27/24 11:53 Resp 16 07/27/24 11:53 BP 116/70 07/27/24 11:53 Pulse Ox 96 07/27/24 11:53 FiO2 Intake & Output 07/26/24 07/27/24 07/27/24 18:59 06:59 18:59 Intake Total 420 118 Output Total 0 Balance 420 118 Weight 96.8 kg Intake: Oral 420 118 Output: Stool 0 Other: # Voids 2 1 - Labs CBC & Chem 7: 07/25/24 11:51 07/27/24 06:32
[2024-07-27] MEDS: NON FORMULARY DRUG (Cetirizine Hcl [Zyrtec] 10 MG Tablet) PO SCH (21:39)
[2024-07-28] MEDS: DOFETILIDE 250 MCG CAP PO ONE (06:05)
[2024-07-28 07:17] LABS: African American GFR (CKD) 89 (>60 ml/min/1.73 sqM); Anion Gap 8 mmol/L; Blood Urea Nitrogen 17 mg/dL (9-20); Calcium 9.2 mg/dL (8.4-10.2); Carbon Dioxide 30 mmol/L (22-30); Chloride 101 mmol/L (98-107); Glucose 94 mg/dL (74-99); Magnesium 2.2 mg/dL (1.6-2.3); Non-African American GFR(CKD) 77 (>60 ml/min/1.73 sqM); Potassium 4.3 mmol/L (3.5-5.1); Sodium 139 mmol/L (137-145)
[2024-07-28] MEDS: SPIRONOLACTONE 25 MG TAB PO SCH (10:12)
[2024-07-28 10:42] VITALS: BP 136/74; PULSE 58; TEMP 97.9
--- NOTE | 2024-07-28 10:51 | P.HPCAR ---
History of Present Illness This is Dr. Epstein dictating an H/P on this patient The patient was interviewed and examined Patientof Dr. Bailon IMPRESSION / ASSESSMENT: Persistent symptomatic atrial fibrillation, failed extensive A-fib ablation Exudative pericarditis, chronic Widening of the QRS with exercise while on flecainide, flecainide toxicity Admitted to initiate dofetilide for rhythm control of atrial fibrillation PLAN: BMP normal potassium, normal renal function Magnesium normal Baseline EKG A-fib with RVR with absolute QT interval of less than 370 ms during tachycardia Initiate dofetilide 250 mcg twice daily. Adjust metoprolol dose once he converts to sinus rhythm Planning on electrical cardioversion if he does not chemically cardiovert on dofetilide HPI Patient continues to complain of shortness of breath with exertion reduced exercise capacity and palpitations while in atrial fibrillation. He has failed A-fib ablation. He had flecainide toxicity with widening of the QRS but without any symptoms of syncope or any ventricular arrhythmias Denies any fever chills cough expectoration. Denies any chest discomfort or loss of consciousness recently Complains of shortness of breath on exertion and fatigue ROS: No fever chills or rigors, no cough, phlegm or expectoration, no nausea, vomiting or diarrhea, no hematuria, dysuria, no musculoskeletal complaints, no strokes or seizures, no skin lesions. EXAMINATION: In the 80s, blood pressure 116/70 mmHg, 96% pulse ox on room air Heart sounds are irregular tachycardic No JVD No lower extremity edema Clear lungs REVIEW OF LABS, ECG & MEDICAL DATA Hemoglobin 14.7, white count normal at 7.1 Platelet count 289,000 Sodium 138, potassium 4.2 BUN 17 and creatinine 0.9 TSH normal at 1.3 Magnesium normal 2.0 Physical Exam Vitals: Vital Signs Temp Pulse Resp BP Pulse Ox 07/28/24 08:00 97.9 F 58 L 16 136/74 07/28/24 03:14 54 L 16 114/64 95 07/27/24 23:32 68 16 112/65 96 07/27/24 20:39 98.0 F 57 L 16 120/70 95 07/27/24 16:00 97.5 F L 51 L 16 115/68 98 07/27/24 14:00 56 L 16 07/27/24 11:53 97.6 F 56 L 16 116/70 96 Intake and Output 03/19/25 03/20/25 03/20/25 22:59 06:59 14:59 Intake Total 540 540 180 Balance 540 540 180 Intake: Oral 540 540 180 Other: Weight 96.3 kg Past Medical History Past Medical History: Atrial Fibrillation, Chest Pain / Angina, GERD/Reflux, Hyperlipidemia, Hypertension, Osteoarthritis (OA), Prostate Disorder, Skin Disorder, Vascular Disorder Additional Past Medical History / Comment(s): CHRONIC GASTRITIS, diverticulitis, varicose veins tx, roseacea,fatigue, spur on feet. BPH History of Any Multi-Drug Resistant Organisms: None Reported Past Surgical History: Cardiac Ablation, Heart Catheterization, Orthopedic Surgery Additional Past Surgical History / Comment(s): daniel rectal cyst, SELINA, cardioversion x 4, colonoscopy, EGD, varicose vein stripping, shoulder for torn tendon on rt, lft shoulder cyst removal and repair. Past Anesthesia/Blood Transfusion Reactions: No Reported Reaction Past Psychological History: No Psychological Hx Reported Smoking Status: Former smoker Past Alcohol Use History: Occasional Additional Past Alcohol Use History / Comment(s): QUIT SMOKING 1999, smoked for approx 40 yrs, < 1 PPD Past Drug Use History: None Reported - Past Family History Mother Family Medical History: Cancer Sister(s) Family Medical History: AFIB, Cancer Additional Family Medical History / Comment(s): SKIN cancers. 3 sisters with with heart issues one with A fib. Brother(s) Family Medical History: Cancer Additional Family Medical History / Comment(s): Colon Physical Examination Vital Signs Temp Pulse Resp BP Pulse Ox 07/28/24 08:00 97.9 F 58 L 16 136/74 07/28/24 03:14 54 L 16 114/64 95 07/27/24 23:32 68 16 112/65 96 07/27/24 20:39 98.0 F 57 L 16 120/70 95 07/27/24 16:00 97.5 F L 51 L 16 115/68 98 07/27/24 14:00 56 L 16 07/27/24 11:53 97.6 F 56 L 16 116/70 96 Intake and Output 07/27/24 07/28/24 07/28/24 22:59 06:59 14:59 Intake Total 540 540 180 Balance 540 540 180 Intake: Oral 540 540 180 Other: Weight 96.3 kg Results 07/25/24 11:51 07/28/24 06:45 Comprehensive Metabolic Panel 07/28/24 Range/Units 06:45 Sodium 139 (137-145) mmol/L Potassium 4.3 (3.5-5.1) mmol/L Chloride 101 (98-107) mmol/L Carbon Dioxide 30 (22-30) mmol/L BUN 17 (9-20) mg/dL Creatinine 0.96 (0.66-1.25) mg/dL Glucose 94 (74-99) mg/dL Calcium 9.2 (8.4-10.2) mg/dL Current Medications Generic Name Dose Route Start Last Admin Trade Name Freq PRN Reason Stop Dose Admin Acetaminophen 500 mg 07/25/24 09:55 Acetaminophen Tab 500 Mg Tab PO Q6HR PRN Fever and/ or Pain Apixaban 5 mg 07/25/24 21:00 07/28/24 08:05 Apixaban 5 Mg Tab PO 5 mg BID NATHANAEL Administration Protocol Magnesium Sulfate/Dextrose 1 100 mls @ 100 mls/hr 07/25/24 09:56 gm/ IV Solution IVPB 08/08/24 23:00 Q1H PRN Hypomagnesemia Magnesium Oxide 400 mg 07/26/24 09:00 07/28/24 08:04 Magnesium Oxide 400 Mg Tab PO 400 mg DAILY NATHANAEL Administration Metoprolol Succinate 50 mg 07/26/24 09:00 07/28/24 08:01 Metoprolol Succinate (Er) 50 Mg Tab.Er.24h PO 50 mg DAILY NATHANAEL Administration Pantoprazole Sodium 40 mg 07/25/24 17:30 07/28/24 06:08 Pantoprazole 40 Mg Tablet PO 40 mg AC-BID NATHANAEL Administration Pravastatin Sodium 40 mg 07/26/24 09:00 07/28/24 08:04 Pravastatin Sodium 40 Mg Tab PO 40 mg DAILY NATHANAEL Administration Psyllium Hydrophilic Mucilloid 6 gm 07/26/24 09:00 07/28/24 08:01 Psyllium Husk 100% 6 Gm Packet PO 6 gm DAILY NATHANAEL Administration Sodium Chloride 3 ml 07/26/24 17:49 Sodium Chloride 0.9% Nebuliz 3 Ml INHALATION BID PRN Sinus Symptoms Spironolactone 12.5 mg 07/28/24 09:00 07/28/24 10:12 Spironolactone 25 Mg Tab PO Not Given DAILY NATHANAEL Tamsulosin HCl 0.4 mg 07/26/24 08:30 07/28/24 08:04 Tamsulosin 0.4 Mg Cap.Er.24h PO 0.4 mg [id number] NATHANAEL Administration Valsartan 160 mg 07/26/24 09:00 07/28/24 08:01 Valsartan 160 Mg Tab PO 160 mg DAILY NATHANAEL Administration Intake and Output 07/27/24 07/28/24 07/28/24 22:59 06:59 14:59 Intake Total 540 540 180 Balance 540 540 180 Intake: Oral 540 540 180 Other: Weight 96.3 kg 07/25/24 11:51 07/28/24 06:45
--- NOTE | 2024-07-28 11:48 | P.DS ---
Providers Date of admission: 07/25/24 10:36 Attending physician: Jose Francisco Epstein Primary care physician: Stated None Hospital Course: HISTORY OF PRESENT ILLNESS: This is a 74-year-old patient of Dr. Epstein who was admitted to the hospital secondary to Tikosyn initiation. Patient received his first dose of Tikosyn yesterday evening and shortly afterwards converted to sinus mechanism. He is maintaining sinus mechanism with a heart rate in the 70s this morning. QTa 420. Patient without complaints of chest pain or shortness of breath. He has been up ambulating in the hallway. Vital signs are stable. Magnesium 2.2. Potassium this morning 5.9. However specimen was hemolyzed. Repeat 3.9. 07/27/2024 Patient examined this morning at the bedside. Patient currently denies chest pain or pressure. He denies shortness of breath. He is maintaining sinus mechanism. QTa this morning around 400. Potassium 4.3. Magnesium 2.3. BUN 17. Creatinine 0.89. 07/28/2024 Patient examined this morning at the bedside. Patient currently denies chest pain or pressure. He denies shortness of breath. He is maintaining sinus mechanism. QTa this morning around 400-420s. Labs stable. he is maintaining sinus mechanism. PHYSICAL EXAM: VITAL SIGNS: Reviewed. GENERAL: Well-developed in no acute distress. NECK: Supple. No JVD or thyromegaly LUNGS: Respirations even and unlabored. Lungs essentially clear to auscultation bilaterally. HEART: Regular rate and rhythm. S1 and S2 heard. EXTREMITIES: Normal range of motion. No clubbing or cyanosis. Peripheral pulses intact. No lower extremity edema ASSESSMENT: Persistent atrial fibrillation, status post initiation of Tikosyn, currently maintaining sinus mechanism Failed extensive ablation with PVI linear ablation of the left atrium Chronic pericarditis Flecainide toxicity with QRS widening with exercise PLAN: Continue anticoagulation with Eliquis Continue Tikosyn 250mcg Q12 hours Continue magnesium, metoprolol succinate 50 mg daily, Pravachol 40 mg daily, Aldactone 12.5 mg daily, and valsartan 160 mg daily Lisinopril and amlodipine discontinued and or not to resume upon discharge Patient to be discharged home today Please see EMR for further hospital course details Nurse practitioner note has been reviewed by physician. Signing provider agrees with the documented findings, assessment, and plan of care documented by FANCY PACKER as a scribe. Plan - Discharge Summary Discharge Rx Participant: No New Discharge Prescriptions: New Dofetilide [Tikosyn] 250 mcg PO Q12HR #14 cap Magnesium Oxide [Mag-Ox] 400 mg PO DAILY #90 tab Dofetilide [Tikosyn] 250 mcg PO Q12HR #180 cap Spironolactone [Aldactone] 12.5 mg PO DAILY #90 tab Valsartan [Diovan] 160 mg PO HS #90 tab Continue Pantoprazole Sodium [Protonix] 40 mg PO BID Pravastatin Sodium [Pravachol] 40 mg PO HS Apixaban [Eliquis] 5 mg PO BID #60 tab Psyllium Husk (with Sugar) [Metamucil Powder] 1 tbsp PO DAILY Tamsulosin [Flomax] 0.4 mg PO DAILY Metoprolol Succinate (ER) [Toprol XL] 50 mg PO DAILY Discontinued lisinopriL 30 mg PO DAILY Cetirizine HCl [Zyrtec] 10 mg PO DAILY PRN PRN Reason: Allergy Symptoms Acetaminophen [Tylenol Extra Strength] 1,000 mg PO Q6H PRN PRN Reason: Pain amLODIPine [Norvasc] 5 mg PO HS Discharge Medication List Pantoprazole Sodium [Protonix] 40 mg PO BID 10/31/14 [History] Pravastatin Sodium [Pravachol] 40 mg PO HS 09/08/17 [History] Apixaban [Eliquis] 5 mg PO BID #60 tab 12/24/18 [Rx] Tamsulosin [Flomax] 0.4 mg PO DAILY 05/25/24 [History] Metoprolol Succinate (ER) [Toprol XL] 50 mg PO DAILY 07/25/24 [History] Psyllium Husk (with Sugar) [Metamucil Powder] 1 tbsp PO DAILY 07/25/24 [History] Dofetilide [Tikosyn] 250 mcg PO Q12HR #14 cap 07/28/24 [Rx] Dofetilide [Tikosyn] 250 mcg PO Q12HR #180 cap 07/28/24 [Rx] Magnesium Oxide [Mag-Ox] 400 mg PO DAILY #90 tab 07/28/24 [Rx] Spironolactone [Aldactone] 12.5 mg PO DAILY #90 tab 07/28/24 [Rx] Valsartan [Diovan] 160 mg PO HS #90 tab 07/28/24 [Rx] Follow up Appointment(s)/Referral(s): Jose Francisco Epstein MD [STAFF PHYSICIAN] - As Needed (Dr Epstein will call you with an appointment time. 1st appointment will be in approximately 3 months. Please get blood work done a week prior to appointment) Cholo Collado MD [STAFF PHYSICIAN] - 08/04/24 1:15 pm ( ) Activity/Diet/Wound Care/Special Instructions: Please get labs done a week prior to seeing Dr Epstein Discharge Disposition: HOME SELF-CARE
--- NOTE | 2024-07-28 12:52 | P.PN ---
Progress Note - Text Patient has a history of persistent atrial fibrillation. Intracardiac echo revealed chronic exudative pericarditis. He has undergone A-fib ablation with PVI and linear ablation in the left atrium. Despite that he has remained in atrial fibrillation which is symptomatic with tiredness fatigue lack of energy and shortness of breath on exertion. Initially he was treated with flecainide 150 mg twice daily by Dr. Bailon. QRS widening was noted on exercise stress test and flecainide was discontinued. He was admitted later to the hospital for initiation of dofetilide With the first dose of dofetilide he converted to sinus rhythm but his QT interval has remained stable all through between 400-420 ms He was treated with 250 mcg twice daily and his QT interval has remained stable He has maintained sinus rhythm with heart rates in the 50s and 60s The dose of beta-blockers was reduced to Toprol-XL 50 mg once daily Today on discharge his absolute QT interval is 420 ms on dofetilide 250 mcg twice daily Renal function potassium and magnesium have remained stable He is being discharged home on Anticoagulation, Eliquis 5 mg twice daily Dofetilide 250 mcg twice daily Valsartan 160 mg daily Toprol-XL 50 mg daily Magnesium oxide 400 mg daily Spironolactone 12.5 mg p.o. daily Amlodipine, lisinopril have been discontinued I had a very detailed discussion with the patient and his regarding decreasing use. I went over the entire Tikosyn education with him for 30 minutes All questions were answered The patient understands that drug interactions should be evaluated for pharmacodynamic as well as pharmacokinetic interactions with dofetilide, for every single new medication that is proposed to be added to his current regimen.
== END 2024-07-28 12:13 | disposition home or self-care (01) | DRG 309 ==
LOC: 3SCARD 10:36
PROVIDERS: ADMIT Internal Medicine Clinical Cardiac Electrophysiology; ATTEND Internal Medicine Clinical Cardiac Electrophysiology
PROC: 3E033RZ Introduction of Antiarrhythmic into Peripheral Vein, Percutaneous Approach (ICD-10-PCS; principal; 2024-07-25)
DX: I48.19 Other persistent atrial fibrillation (principal); I31.8 Other specified diseases of pericardium; I10 Essential (primary) hypertension; E66.3 Overweight; E78.5 Hyperlipidemia, unspecified; Z51.81 Encounter for therapeutic drug level monitoring; T46.2X5A Adverse effect of other antidysrhythmic drugs, initial encounter; N40.0 Benign prostatic hyperplasia without lower urinary tract symptoms; E83.42 Hypomagnesemia; Z79.01 Long term (current) use of anticoagulants; Z79.899 Other long term (current) drug therapy; Z87.891 Personal history of nicotine dependence; Z88.2 Allergy status to sulfonamides; Z88.1 Allergy status to other antibiotic agents; Z91.048 Other nonmedicinal substance allergy status; Z91.040 Latex allergy status; X58.XXXA Exposure to other specified factors, initial encounter; Z68.28 Body mass index [BMI] 28.0-28.9, adult
CPT/HCPCS: 80048; 83735; 84132; 84443; 85025; 85610

== ENCOUNTER 2024-11-10 12:35 | Day surgery (SDC) | payer MEDICARE ==
[2024-11-10 13:53] VITALS: RESP 16
[2024-11-10 13:55] LABS: Basophils # (A) 0.07 10*3/uL (0.00-0.10); Basophils % (A) 1.0 %; Eosinophils # (A) 0.29 10*3/uL (0.04-0.35); Eosinophils % (A) 4.3 %; HCT 42.4 % (39.6-50.0); HGB 14.7 g/dL (13.0-17.0); Lymphocytes # (A) 1.78 10*3/uL (0.90-5.00); Lymphocytes % (A) 26.5 %; MCH 31.2 pg (27.0-32.0); MCHC 34.7 g/dL (32.0-37.0); MCV 90.0 fL (80.0-97.0); Monocytes # (A) 0.77 10*3/uL (0.20-1.00); Monocytes % (A) 11.5 %; Neutrophils # (A) 3.80 10*3/uL (1.80-7.70); Neutrophils % (A) 56.6 %; Platelet Count 278 10*3/uL (140-440); RBC 4.71 10*6/uL (4.40-5.60); RDW 11.9 % (11.5-14.5); WBC 6.72 10*3/uL (4.50-10.00)
[2024-11-10] MEDS: LACTATED RINGERS 1,000 ML IV SCH (13:59)
[2024-11-10] MEDS: SODIUM CHLORIDE 0.9% 1,000 ML IV SCH (13:59)
[2024-11-10 14:11] LABS: African American GFR (CKD) >90 (>60 ml/min/1.73 sqM); Anion Gap 9 mmol/L; Blood Urea Nitrogen 17 mg/dL (9-20); Calcium 9.2 mg/dL (8.4-10.2); Carbon Dioxide 25 mmol/L (22-30); Chloride 107 mmol/L (98-107); Glucose 91 mg/dL (74-99); Non-African American GFR(CKD) 86 (>60 ml/min/1.73 sqM); Sodium 141 mmol/L (137-145)
[2024-11-10 14:20] LABS: Potassium 4.5 mmol/L (3.5-5.1)
[2024-11-10] MEDS ORDERED: PHENYLEPHRINE 10 MG/ML VIAL ONE (16:06)
[2024-11-10] MEDS ORDERED: ROCURONIUM 10 MG/ML (5 ML VIAL) IV ONE (16:06)
[2024-11-10] MEDS ORDERED: PHENYLEPHRINE-0.9% NACL SYG 1,000 MCG/10 ML SYRINGE ONE (16:06)
[2024-11-10] MEDS ORDERED: LIDOCAINE 1% INJ 10MG/ML (20 ML MDV) ONE (16:06)
[2024-11-10] MEDS ORDERED: HEPARIN SODIUM,PORCINE 10,000 UNIT/ML 1 ML VIAL ONE (16:06)
[2024-11-10] MEDS ORDERED: fentaNYL (PF) 50 MCG/ML 2 ML AMP ONE (16:06)
[2024-11-10] MEDS: IV FLUID CONTINUATION 850 ML IV ONE ×2 (16:06)
[2024-11-10] MEDS ORDERED: ATROPINE SULFATE 0.4 MG/ML 1 ML VIAL ONE (16:06)
[2024-11-10] MEDS ORDERED: SUCCINYLCHOLINE CHLORIDE 200 MG/10 ML VIAL IV ONE (16:06)
[2024-11-10] MEDS ORDERED: PROPOFOL 10 MG/ML 20 ML VIAL IV ONE (16:06)
[2024-11-10] MEDS ORDERED: MIDAZOLAM 2 MG/2 ML VIAL ONE (16:06)
[2024-11-10] MEDS: HEPARIN SOD,PORK IN 0.45% NACL 25,000 UNIT in 0.45% NACL 1 250ML.BAG IV ONE ×2 (16:21)
[2024-11-10] MEDS: HEPARIN SODIUM (1,000 UNIT/ML) 1,000 UNIT in SODIUM CHLORIDE 0.9% 1,000 ML IRRIGATION ONE (16:28)
[2024-11-10] MEDS: HEPARIN SODIUM,PORCINE 10,000 UNIT in SODIUM CHLORIDE 0.9% 1,000 ML IRRIGATION ONE (16:28)
[2024-11-10] MEDS: LIDOCAINE 1% INJ 10MG/ML (20 ML MDV) SQ ONE (16:47)
[2024-11-10] MEDS ORDERED: ACETAMINOPHEN TAB 325 MG TAB PO PRN (19:39)
--- NOTE | 2024-11-10 19:56 | P.EPPROC ---
- EP Procedure Note Electrophysiology Procedure Note: Diagnosis Atrial tachycardia on dofetilide RVR associated shortness of breath and chest discomfort Final diagnosis Left atrial roof reentry. This was in the very lateral and just outside the left superior pulmonary vein and a single RF lesion terminated the arrhythmia. Roofline was then completed Mitral reentry induced and successfully ablated and terminated Very large right-sided pulmonary veins with the middle pulmonary vein which was very posteriorly oriented. Large carlos between the veins resulting in a gap between the right superior and right inferior as well as right middle. Successful RF ablation of the right-sided pulmonary vein at a very antral level Details Patient is brought to the EP lab in a fasting state. Under general anesthesia venous access was obtained to the right left femoral veins. Coronary sinus catheter was placed which showed a eccentric CS activation with a cycle length of about 270 ms. Intracardiac echo was placed 3D anatomic mapping was performed. No left atrial appendage thrombus noted no pericardial effusion noted baseline. Right left transseptal catheterization performed RA pressure 14/7/10 mmHg LA pressure 22/7/14 mmHg Electroanatomic mapping was performed with a Penta ray catheter and a localized reentry was noted on the very lateral end of the previously made roofline. In addition very large right sided veins. The right superior pulmonary vein was extremely large and while isolated at an ostial level not at an antral level. Similarly the right inferior pulmonary vein was also previously ablated ostial level on account of the size. In addition there was a right middle vein that is very posteriorly oriented. The carlos between all 3 veins with very large and there is a gap of healthy tissue in between all the veins. RF ablation was performed at a very antral level for the entire right-sided pulmonary venous complex and this was completely isolated at an antral level. When the roofline was completed the tachycardia terminated but then atrial fibrillation was induced. Once the right sided veins were completely isolated the atrial fibrillation organized into a concentric atrial tachycardia. 3D electroanatomic mapping was performed and mitral reentry was confirmed. RF ablation was performed along the anterior LA wall from the roof down to the mitral annulus with termination of the tachycardia. A complete line of block was made AH interval 95 ms. HV interval 54 ms GA interval 183 ms, QRS 106 and QT 466 ms Sinus node recovery time was 600, 504 100 ms were sinus node recovery times were mildly prolonged at a pacing cycle length of 400 ms AV node Wenckebach block 420 ms, 1651 and 1745 ms. Intracardiac echo showed normal pericardium at the end of the procedure All catheters were removed access sites were sealed Patient tolerated the procedure well without any acute complications
[2024-11-10] MEDS: ACETAMINOPHEN IV (For NPO) 1,000 MG in EMPTY BAG 1 BAG IVPB ONE (21:40)
[2024-11-10] MEDS: APIXABAN 5 MG TAB PO SCH (21:41)
[2024-11-10] MEDS: PRAVASTATIN SODIUM 40 MG TAB PO SCH (21:41)
[2024-11-10] MEDS: PANTOPRAZOLE 40 MG TABLET PO SCH (21:41)
[2024-11-10] MEDS: DOFETILIDE 250 MCG CAP PO SCH (21:42)
[2024-11-10] MEDS: VALSARTAN 160 MG TAB PO SCH (21:42)
[2024-11-11 07:39] VITALS: BP 116/72; PULSE 58; TEMP 98
[2024-11-11] MEDS: TAMSULOSIN 0.4 MG CAP.ER.24H PO SCH (08:23)
[2024-11-11] MEDS: MAGNESIUM OXIDE 400 MG TAB PO SCH (08:23)
[2024-11-11] MEDS: FUROSEMIDE 40 MG TAB PO STA (12:54)
--- NOTE | 2024-11-13 14:03 | P.DS ---
Providers Attending physician: Jose Francisco Epstein Primary care physician: Isaiah Aponte DO Hospital Course: Patient was seen on Thursday in the morning post ablation He is doing very well No chest discomfort dizziness lightheadedness or palpitations His groins have healed well no hematoma no swelling mild bruising Blood pressure 121/76 mmHg pulse rate in the 70s Afebrile Heart sounds are normal and regular no murmur gallop or rub Breath sounds are clear His twelve-lead EKG shows sinus rhythm normal [place] narrow QRS and absolute QT interval of less than 440 ms on dofetilide Yesterday he underwent an A-fib ablation 1. Left atrial roof entry on the very lateral aspect just outside the left superior pulmonary vein, with clinical termination with RF Induction of atrial fibrillation thereafter 2. Organization of atrial fibrillation as the right sided pulmonary veins were completely isolated and encircled at a very antral level into mitral reentry 3. Mitral reentry ablation, left atrial anterior wall with termination during RF Plan Continue dofetilide to 50 mcg twice daily Continue Eliquis Continue Pravachol Reduce the dose of metoprolol succinate back to 50 mg p.o. daily Continue Diovan Continue magnesium [facility] Plan - Discharge Summary Discharge Rx Participant: No New Discharge Prescriptions: New Metoprolol Succinate (ER) [Toprol XL] 50 mg PO DAILY #90 tab Discontinued Metoprolol Succinate (ER) [Toprol XL] 75 mg PO DAILY No Action Pantoprazole Sodium [Protonix] 40 mg PO BID Pravastatin Sodium [Pravachol] 40 mg PO HS Apixaban [Eliquis] 5 mg PO BID #60 tab Psyllium Husk (with Sugar) [Metamucil Powder] 1 tbsp PO DAILY Magnesium Oxide [Mag-Ox] 400 mg PO DAILY #90 tab Tamsulosin [Flomax] 0.4 mg PO DAILY Valsartan [Diovan] 160 mg PO HS #90 tab Dofetilide [Tikosyn] 250 mcg PO BID Discharge Medication List Pantoprazole Sodium [Protonix] 40 mg PO BID 10/31/14 [History] Pravastatin Sodium [Pravachol] 40 mg PO HS 09/08/17 [History] Apixaban [Eliquis] 5 mg PO BID #60 tab 12/24/18 [Rx] Tamsulosin [Flomax] 0.4 mg PO DAILY 05/25/24 [History] Psyllium Husk (with Sugar) [Metamucil Powder] 1 tbsp PO DAILY 07/25/24 [History] Magnesium Oxide [Mag-Ox] 400 mg PO DAILY #90 tab 07/28/24 [Rx] Valsartan [Diovan] 160 mg PO HS #90 tab 07/28/24 [Rx] Dofetilide [Tikosyn] 250 mcg PO BID 11/09/24 [History] Metoprolol Succinate (ER) [Toprol XL] 50 mg PO DAILY #90 tab 11/10/24 [Rx] Follow up Appointment(s)/Referral(s): Jose Francisco Epstein MD [STAFF PHYSICIAN] - 1 Week Activity/Diet/Wound Care/Special Instructions: Post EP study - Ablation instructions 1. Keep access sites dry for 2 days. 2. No heavy lifting or straining for 2 days. 3. Avoid bending the hips repeatedly for 2 days. 4. You may go up and down stairs slowly 5. If you have had an ablation for atrial fibrillation or atrial flutter and are on a blood thinner, do not stop the blood thinner even temporarily for 3 months post ablation Call if the following is noted 1. Bleeding, increasing swelling or pain at the access sites. 2. Increasing chest discomfort, especially upon taking a deep breath. 3. Increasing shortness of breath, at rest or with exertion. 4. Undue cough / phlegm 5. Difficulty or pain while swallowing. 6. Pain or change in color in the extremities. 7. Fever, chills, rigors. 8. Increasing headache or neurologic symptoms. 9. Dizziness, fainting, palpitations For patients who have undergone an A-fib ablation /atrial flutter ablation Strict instruction; do NOT stop anticoagulation (Eliquis/Xarelto/Pradaxa) for the next 2 months temporarily, for any elective, nonurgent surgery. This increases the risk of stroke, post A-fib ablation Discharge Disposition: HOME SELF-CARE
== END 2024-11-11 13:16 | disposition home or self-care (01) ==
LOC: CATHEP 12:35 → 6NMEDSUR 19:23 → CATHEP 11-11 13:16
PROVIDERS: ATTEND Internal Medicine Clinical Cardiac Electrophysiology
DX: I48.19 Other persistent atrial fibrillation (principal); I47.19 Other supraventricular tachycardia; I44.1 Atrioventricular block, second degree; N40.0 Benign prostatic hyperplasia without lower urinary tract symptoms; K21.9 Gastro-esophageal reflux disease without esophagitis; I10 Essential (primary) hypertension; E78.5 Hyperlipidemia, unspecified; M19.90 Unspecified osteoarthritis, unspecified site; L23.1 Allergic contact dermatitis due to adhesives; Z87.891 Personal history of nicotine dependence; Z91.040 Latex allergy status; Z88.2 Allergy status to sulfonamides; Z79.01 Long term (current) use of anticoagulants; Z79.899 Other long term (current) drug therapy
CPT/HCPCS: 93462; 93662; 93653; 93655; 86900; 86901; 80048; 85025; 86850; C1759; C1769 ×3; C1894; C1766; C1760 ×3; C1730; C1731; C1732; J2250; J0330; J0461; J1644 ×3; J2003; J3010; J0131; J2704; J2371 ×2